=== PATIENT | male | born 1955 | race Caucasian/White ===

== ENCOUNTER 2016-07-08 19:20 | Inpatient (IN) | payer BC ==
[~2016-07-08] VITALS: Ht 182.9 cm; Wt 68.0 kg
--- NOTE | ~2016-07-08 | EKG ---
[address] [place] [employer] [place] [address] ELECTROCARDIOGRAM REPORT Name: BRIANA MYERS Room #: 449-I ADM IN M.R.#: [id number] Admission: 07/08/16 Attend Phys: Margarito Lion MD Discharge: Date of : 51 Report #: [id number] THIS REPORT FOR: //name// [facility] ED Test Date: 2016-07-08 Test Time: 19:41:08 Pat Name: BRIANA MYERS Department: Room: [facility] Gender: M Welt Beater: GUANACO : 1955 Requested By: Keyona Grider Order Number: [id number] MD: Felix Tatum Measurements Intervals [place] Rate: 107 P: 86 KS: 157 QRS: 90 QRSD: 88 T: 37 QT: 333 QTc: 445 Interpretive Statements Sinus tachycardia Borderline right axis deviation Baseline wander in lead(s) V5 No previous ECG available for comparison Electronically Signed On 07-09-2016 8:27:38 PIPING SUPERVISOR by Felix Tatmu [email or web address] <ELECTRONICALLY SIGNED> By: Felix Tatum MD 07/09/16826 40 40 Felix Tatum MD /YFN
--- NOTE | ~2016-07-08 | H ---
[facility] [place] [address] HISTORY AND PHYSICAL Name: BRIANA MYERS Room #: 449-I [facility] IN M.R.#: [id number] Admission: 07/08/16 Attend Phys: Margarito Lion MD Discharge: 07/15/16 Date of : 51 Report #: [id number] THIS REPORT FOR: //name// CC: Margarito Redmond MD ATTENDING PHYSICIAN: Margarito Lion M.D. PRIMARY CARE PHYSICIAN: Gayle Redmond M.D. CHIEF COMPLAINT: Abdominal pain, nausea, vomiting, diarrhea. HISTORY OF PRESENT ILLNESS: The patient is a 61-year-old male, who said he has been having about 4 days of mid abdominal pain. It has been sharp in nature and it has been coming in waves. About 2 days ago, started having nausea and vomiting. He really has not been successful keeping anything down. He thought he was constipated, therefore he tried some MiraLax and then had started having liquids stools. He has been having about 4-5 liquids stools a day for the last 2 days. He denies having any fevers, but has been having some chills, denies any recent antibiotic use. Denies any blood in his emesis or stools. He denies any prior abdominal surgeries. He was found to have a distal small bowel obstruction in the ER and he ____ for further supportive care. He already says that his abdominal pain has improved. He has not had any further vomiting since arrival and he is passing flatus. PAST MEDICAL HISTORY: Bronchiectasis, multiple sclerosis, hypertension, diabetes. PAST SURGICAL HISTORY: Sinus surgery, right arm fracture and repair. ALLERGIES: REYES INHIBITOR causes a cough, COMPAZINE causes dystonia reaction. HOME MEDICATIONS: Benadryl p.r.n, ProAir p.r.n., Norvasc 10 mg daily, naproxen 220 mg daily, clorazepate 3.75 mg b.i.d. for anxiety, QVAR 1 puff daily, Mucinex 600 mg b.i.d., Flonase 2 sprays daily, ipratropium 2 sprays q. 8 hours p.r.n., Protonix 40 mg daily, prednisone 5 mg daily, Levemir insulin 14 units at bedtime and Humalog insulin with meals and multivitamin daily. SOCIAL HISTORY: The patient is wheelchair dependent and has not ambulated in 30 years due to his MS. He lives alone. 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 He denies any tobacco, alcohol or drug use. FAMILY HISTORY: Negative for MS. REVIEW OF SYSTEMS: Twelve point review of systems was reviewed with the patient, otherwise negative unless stated in the HPI. [address] [address] HISTORY AND PHYSICAL Name: BRIANA MYERS Room #: 449-I DIS IN M.R.#: [id number] Admission: 07/08/16 Attend Phys: Margarito Lion MD Discharge: 07/15/16 Date of : 51 Report #: [id number] PHYSICAL EXAMINATION: GENERAL: The patient is an alert male in no acute distress. VITAL SIGNS: Temperature is 36.9, heart rate 122 initially, it is now 74, respirations 18, blood pressure 129/83, oxygen 95% on room air. HEENT: PERRLA. Sclerae is nonicteric. Oral mucosa is pink and dry. NECK: Supple, no JVD noted. CARDIOVASCULAR: Normal S1, S2. No murmurs, rubs or gallops. RESPIRATORY: Breath sounds are clear bilaterally. No wheezing or rhonchi. He is diminished in the bases. Breathing is nonlabored. ABDOMEN: Soft with some very mild tenderness to palpation in the epigastric area. Bowel sounds are active. VASCULAR: 1+ bilateral ankle edema. Pedal pulses are 2+. MUSCULOSKELETAL: He does have some muscle atrophy in bilateral lower extremities. NEUROLOGIC: The patient is alert and oriented x 3. Speech does have dysarthria, which is chronic and somewhat difficult to understand. He does have some generalized weakness with some rigidity to the bilateral upper extremities. LABORATORY AND DIAGNOSTICS: WBC of 5.1, hemoglobin 15.3 and platelets 413. Sodium 143, potassium 3.8, BUN ____, creatinine 1.4. Glucose 87. LFTs are within normal limits. Troponins negative. Lipase is 78. UA showed 1+ glucose, negative leukocyte esterase. EKG shows sinus tachycardia. CT of the abdomen showed findings consistent with a distal small bowel obstruction. The transition zone was not well delineated. ASSESSMENT AND PLAN: 1. Distal small bowel obstruction. This may be due to underlying gastroenteritis. He did not require an NG tube in the ER and his pain has now improved and he is s now passing flatus and having bowel sounds with likely resolving. We will follow up with the KUB this morning. If that improves, we will start him on some clear liquids and advanced diet as tolerated. For now, continue with just ice chips, IV fluids and antiemetics. 2. Gastroenteritis, likely viral. We will continue with supportive care with antiemetics and check stool studies. 3. Acute kidney injury. He is mildly dehydrated due to nausea, vomiting, and diarrhea. Continue with IV fluids and follow labs. 4. Diabetes. He is insulin-dependent. He is quite concerned that his blood sugars will get crazy if he is not kept on his home insulin regimen. I did explain that that we do need to hold some of his insulin from home because he is n.p.o. We will be checking sugars q. 6 hours while n.p.o. and covering with sliding scale insulin. We will resume home insulin regimen when he is taking p.o. [facility] [address] [place] [address] HISTORY AND PHYSICAL Name: BRIANA MYERS Room #: 449-I DIS IN .R.#: [id number] Admission: 07/08/16 Attend Phys: Margarito Lion MD Discharge: 07/15/16 Date of : 51 Report #: [id number] 5. Multiple sclerosis. The patient is at baseline. 6. History of hypertension. Home meds will be held due to n.p.o. status. Resume when able to take p.o., for now, his blood pressures are controlled. 7. History of bronchiectasis. He is adamant that he still needs to take his guaifenesin, despite being n.p.o. We will continue that. Continue with p.r.n. breathing treatments. No signs of exacerbation at this time, he is on prednisone 5 mg daily for it, which we will continue as well. 8. Deep vein thrombosis prophylaxis, place sequential compression devices. We will continue to follow the patient closely throughout the hospitalization and make changes based on clinical status. <ELECTRONICALLY SIGNED> By: LATANYA Limon 07/22/16 0714 0543 [id number] LATANYA Limon /pipe
--- NOTE | ~2016-07-08 | D ---
[facility] [address] DISCHARGE SUMMARY Name: BRIANA MYERS Room #: 449-I [facility] IN M.R.#: [id number] Admission: 07/08/16 Attend Phys: Margarito Lion MD Discharge: 07/15/16 Date of : 51 Report #: [id number] THIS REPORT FOR: //name// CC: Margarito Redmond DATE OF SERVICE: 07/15/2016 DISCHARGE DIAGNOSES: 1. Distal small-bowel obstruction likely secondary to acute gastroenteritis, now resolved. 2. Acute gastroenteritis. 3. Acute kidney injury secondary to above. 4. Type 2 diabetes. 5. Multiple sclerosis. 6. Hypertension. 7. History of bronchiectasis on chronic steroids. CONSULTS: Surgery, Dr. Carnes. PROCEDURES: None. HOSPITAL COURSE: The patient is a 61-year-old male with a history of multiple sclerosis as well as history of bronchiectasis on steroids, diabetes, presented to the ER secondary to abdominal pain, nausea, vomiting and diarrhea. Please see details of the admission dictated by Cristela Garduno on July 15. Symptoms are very congestive, enterocolitis or acute gastroenteritis. However, workup in the ER revealed a distal small-bowel obstruction. The patient was admitted and surgery was consulted. He was placed on bowel rest, antiemetics, pain control and IV fluids. His creatinine when he first came in was 1.4, on discharge it was 0.8. For details of the hospital course, please see [employer] as he was here for prolonged stay. The patient also had a CT enterography done on July 13 that showed distal small-bowel obstruction and enterocolitis. The patient eventually had an NG tube placed to suction and had large amounts of NG tube output. Other studies included negative UA. He was very slow to recover though on the was doing much better and able to tolerate a diet and was very anxious to go home. At that time, he was cleared for discharge by surgery. Of note during the hospital course, he was very displeased with the way some of his medical issues were managed. He felt that his sugars were not properly controlled and he felt that nursing staff was not proficient in caring for him. He felt that he could not manage his medical issues best and wanted to be discharged home as quickly as possible. On the day of discharge, he had no further nausea, vomiting or abdominal pain. He was tolerating his diet bowel movement. He denied any other complaints. Nurses report no other problems. [address] [address] DISCHARGE SUMMARY Name: BRIANA MYERS Room #: 449-I [facility]#: [id number] Admission: 07/08/16 Attend Phys: Margarito Lion MD Discharge: 07/15/16 Date of : 51 Report #: [id number] DISCHARGE DISPOSITION: To home. DISCHARGE PHYSICAL EXAMINATION: VITAL SIGNS: Temperature 36.8, pulse 105, blood pressure 146/70, O2 sat 100% on room air. GENERAL: He is awake, alert, answering questions appropriately, in no acute respiratory distress. CARDIOVASCULAR: Regular rate and rhythm. No murmurs. LUNGS: Clear to auscultation bilaterally. No crackles or wheeze. ABDOMEN: Soft, no distention or tenderness. EXTREMITIES: No edema. NEUROLOGIC: Nonfocal. DISCHARGE MEDICATIONS: Clorazepate 3.75 mg b.i.d., Norvasc 10 mg daily, Flonase 2 sprays p.r.n., Atrovent p.r.n., Protonix 40 daily, Benadryl 25 p.r.n., guaifenesin p.r.n., QVAR 1 inhalation p.r.n., multivitamin daily, ProAir p.r.n., prednisone 5 mg daily, Levemir 15 units at bedtime. CBC and CMP in 1 week. Follow up with primary care in 1 week and to seek immediate medical attention if symptoms worsen or recur or if he has any other significant medical concerns. Discharge planning took 40 minutes. <ELECTRONICALLY SIGNED> By: Melissa Cobb MD 09/06/16 1053 1639 16 Melissa Cobb MD /nt
--- NOTE | ~2016-07-08 | HC ---
[facility] [place] [address] CONSULTATION Name: BRIANA MYERS Room #: 449-I ADM IN M.R.#: [id number] Admission: 07/08/16 Attend Phys: Margarito Lion MD Discharge: Date of : 51 Report #: [id number] THIS REPORT FOR: //name// CC: Margarito Redmond MD DATE OF SERVICE: 07/11/2016 ATTENDING PHYSICIAN: Margarito Lion MD. REASON FOR CONSULTATION: Bowel obstruction. HISTORY OF PRESENT ILLNESS: This is a 61-year-old male patient, who was admitted to [facility] on 07/08/2016 with a several day history of abdominal pain and loose stools. Despite the passage of smaller stools recently, since his hospitalization, he has had continued radiographic evidence for a small-bowel obstruction. His most recent abdominal x-ray today shows dilated loops of small bowel, measuring up to 6.3 cm in diameter. There has not been evidence for free air on any of his studies. His initial CT on 07/08/2016 showed fluid filled distention of the stomach with an air-fluid level, as well as multiple dilated loops of small bowel with air-fluid levels with a transition in the distal small bowel. A definite transition zone was not well delineated. The patient denies significant abdominal pain at this time. PAST MEDICAL HISTORY: Significant for multiple sclerosis, hypertension, diabetes mellitus, and history of bronchiectasis. PAST SURGICAL HISTORY: The patient has not undergone abdominal surgery in the past; however, he has undergone sinus surgery and open reduction internal fixation of a right arm fracture. HOME MEDICATIONS: Include Norvasc, naproxen, clorazepate, Mucinex, Flonase, ipratropium, Protonix, prednisone, insulin, and p.r.n. medications. ALLERGIES: REYES INHIBITOR causes coughing. COMPAZINE causes dystonia. FAMILY HISTORY: Reviewed and noncontributory to this hospitalization. 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 He denies the use of tobacco, alcohol, or illicit drugs. REVIEW OF SYSTEMS: As per history of present illness. In addition, GENERAL: The patient denies unintentional weight loss. Denies fever or chills. HEENT: Denies changes in taste, vision, hearing, or smell. RESPIRATORY: Denies shortness of breath, COPD, or asthma. CARDIOVASCULAR: Denies chest pain or palpitations. [address] [address] CONSULTATION Name: BRIANA MYERS Room #: 449-I [facility] IN ..#: [id number] Admission: 07/08/16 Attend Phys: Margarito Lion MD Discharge: Date of : 51 Report #: [id number] GASTROINTESTINAL: As per history of present illness. Denies bright red blood per rectum. GENITOURINARY: Denies dysuria, urgency, increased urinary frequency, or hematuria. MUSCULOSKELETAL: Wheelchair dependent, has a history of multiple sclerosis. NEUROLOGIC: Denies headaches, numbness, or tingling. PSYCHIATRIC: Denies depression, anxiety, or suicidal ideations. SKIN AND INTEGUMENTARY: Denies new skin lesions, rashes, or moles. ENDOCRINE: Denies polydipsia, polyuria, heat or cold intolerance. HEMATOLOGIC: Denies easy bleeding, bruising, or anemia. All other review of systems is negative. PHYSICAL EXAMINATION: VITAL SIGNS: Temperature 98.4, blood pressure 147/51, pulse 81, respirations 16. GENERAL: This is a 61-year-old male patient with multiple sclerosis changes. He has a dysarthric speech. HEENT: Atraumatic and normocephalic. With moist mucosal membranes. Oropharynx is clear. He has no scleral icterus. NECK: Supple. No appreciable lymphadenopathy. CHEST: Clear bilaterally. No crackles or wheezes. CARDIOVASCULAR: Regular rate and rhythm. S1 and S2. ABDOMEN: Soft, but distended and tender to palpation. He has fat necrosis nodules on either side of his umbilicus inferiorly on either side of his umbilicus. Each nodule is approximately 1-2 cm in diameter. He has no overlying erythema or edema. No appreciable hernias. No rebound or guarding. GENITOURINARY: Normal external male genitalia. EXTREMITIES: No clubbing or cyanosis. NEUROLOGICAL: Cranial nerves 2-12 are grossly intact. PSYCHIATRIC: Normal affect. SKIN/INTEGUMENTARY: No acute inflammatory changes, rashes, or lesions are present. LABORATORY DATA: CBC from this morning shows white blood cell count of 3.6, hemoglobin of 15.2, hematocrit of 44.4, and platelets of 330. His electrolytes showed sodium of 141, potassium of 3.4, chloride of 106, CO2 28, BUN 19, creatinine 0.8, and glucose 38. His glucose has normalized since with appropriate measures, stool for enteric pathogens is negative. The patient's lactate is normal at 0.89. RADIOLOGIC STUDIES: KUB findings are as noted above. Successive KUBs after his initial CT scan have shown slightly increased small bowel diameter. IMPRESSION AND PLAN: This is a 61-year-old male patient with the above listed comorbidities, who now has a possible partial small-bowel obstruction. After his admission on 07/08/2016, he has been treated conservatively with bowel rest [address] [address] CONSULTATION Name: BRIANA MYERS Room #: 449-I ADM IN ..#: [id number] Admission: 07/08/16 Attend Phys: Margarito Lion MD Discharge: Date of : 51 Report #: [id number] and IV fluids; however, a nasogastric tube has not been placed, likely because he has been passing small bowel movements. Despite his bowel activity (which has been minimal), his x-rays have shown an increase in the diameter of his small bowel with an ongoing small-bowel obstruction picture. The patient does not have a history of prior abdominal operations. The patient's lactate is normal. I discussed the natural history and pathophysiology of small bowel obstructions particularly in light of his not having had an operation in the past. Despite this, the patient would benefit from placement of a nasogastric tube for decompression. Should this not resolve with additional conservative measures, the patient may benefit from operative intervention. I will follow along with serial abdominal exams, as well as x-rays and labs as necessary. Should his obstruction resolve with conservative measures, since he has not undergone surgery in the past, he would benefit from further evaluation with either a small bowel follow through or CT enterography. The patient understands the plan and agrees with placement of the nasogastric tube. This will be undertaken promptly. I sincerely appreciate the opportunity to participate in the care of this patient, and will leave further recommendations and orders in the electronic medical record as appropriate. <ELECTRONICALLY SIGNED> By: Edgar Carnes MD, FACS 07/12/16 0845 1323 1521 Edgar Carnes MD, FACS /nt
[~2016-07-08 19:20] MED LIST: ACCUNEB SO1.25 MG/1; ALEVE220 MG; ATROVENT30 ML NASAL; ATROVENT30 ML NS; BENADRYL25 MG PO; CENTRUM SILVER1 EAC4 PO; CHEST CONGESTI400 MG PO; CLORAZEPATE DI7.5 M1 PO; COMBIVENT INH; DOXYCYCLINE 10100 M1 PO; FLONASE16 GM NASAL; FLOVENT HFA 1110 MCG INH; HUMULIN N100 UNIT/1 SUBQ; HUMULINR100 SUBQ; HUMULINU500 SUBQ; LEVAQUIN 500 M500 M1 PO; LEVAQUIN 500 M500 M2 PO; MEDROLDOSEPACK PO; MUCINEX600 MG PO; MUCUS RELIEF600 MG PO; NEXIUM40 MG PO; NORVASC 5 MG TAB5 MG PO; NORVASC10 MG; NOVOLIN N100 UNIT/3 SUBQ; PREDNISONE 10 M10 MG PO; PREDNISONE 20 M20 M1 PO; PREDNISONE 20 M20 MG PO; PROAIR HFA8.5 GM; PROTONIX40 M1 PO; QVAR8.7 G1 IH; TESSALON PERLE100 MG PO; TESSALON200 MG PO; TRANSENE; ZPAK PO; [UNRECOGNIZED DRUG - OTHER]
[2016-07-08 19:24] VITALS: BP 129/83; BP 129/839
[2016-07-08] MEDS ORDERED: TRANXENE T-TAB7.5 MG PO (19:51)
[2016-07-08 19:53] LABS: HEMOGLOBIN 15.3 gm/dL (14.0-18.0); MCH 32.4 pg (26.0-34.0); MCHC 34.8 % (28.0-37.0); MCV 93.3 fL (80.0-100.0); PLATELET COUNT 413 thou/uL (150-400); RBC 4.71 mil/uL (4.50-6.00); RDW 13.9 % (10.5-14.5); WBC 5.1 thou/uL (4.0-11.0)
[2016-07-08 19:56] LABS: MANUAL DIFF YES
[2016-07-08 20:00] LABS: ANION GAP 6 mmol/L (7-16); BUN 50 mg/dL (7-18); CALCIUM 9.6 mg/dL (8.5-10.1); CHLORIDE 98 mmol/L (98-107); CO2 39 mmol/L (21-32); CREATININE 1.4 mg/dL (0.6-1.3); GLUCOSE 87 mg/dL (70-99); POTASSIUM 3.8 mmol/L (3.5-5.1); SODIUM 143 mmol/L (136-145)
[2016-07-08 20:09] LABS: ALBUMIN 3.3 g/dL (3.4-5.0); ALKALINE PHOSPHATASE 109 U/L (46-116); SGOT 14 U/L (15-37); TOTAL BILIRUBIN 0.7 mg/dL (<0.1-1.0); TOTAL PROTEIN 7.3 g/dL (6.4-8.2); TROPONIN-I < 0.04 ng/mL (<0.04-0.07)
[2016-07-08 20:26] LABS: ABSOLUTE NEUTROPHILS 3.8 thou/uL (1.4-8.2); TOTAL CELL COUNT 100
[2016-07-08 21:00] LABS: URINE BILIRUBIN NEGATIVE (Negative); URINE BLOOD NEGATIVE (Negative); URINE COLOR YELLOW; URINE GLUCOSE-RANDOM* 1+ (Negative); URINE KETONES TRACE (Negative); URINE LEUKOCYTES-REFLEX NEGATIVE (Negative); URINE PROTEIN (DIPSTICK) TRACE (Negative); URINE UROBILINOGEN 0.2 E.U./dl (0.2-1.0)
[2016-07-08 22:14] VITALS: BP 124/79
[2016-07-08 22:25] VITALS: BP 146/58
[2016-07-08 23:09] LABS: SGPT 36 U/L (30-65)
[2016-07-09 05:08] VITALS: BP 123/58
[2016-07-09 06:56] LABS: CALCIUM 8.4 mg/dL (8.5-10.1); CREATININE 1.2 mg/dL (0.6-1.3); POTASSIUM 4.1 mmol/L (3.5-5.1)
[2016-07-09 07:06] VITALS: BP 113/58
[2016-07-09 11:33] VITALS: BP 127/67
[2016-07-09 16:56] VITALS: BP 126/66
[2016-07-09] MEDS ORDERED: LEVEMIR100 UNIT/1 SUBQ (17:29)
[2016-07-09] MEDS ORDERED: LEVEMIR SUBQ (17:33)
[2016-07-09 19:27] VITALS: BP 146/55
[2016-07-10 03:07] VITALS: BP 137/61
[2016-07-10 04:39] LABS: HEMATOCRIT 38.5 % (42.0-52.0); MCH 32.2 pg (26.0-34.0); MCHC 33.4 % (28.0-37.0); MCV 96.4 fL (80.0-100.0); RDW 13.4 % (10.5-14.5); WBC 4.7 thou/uL (4.0-11.0)
[2016-07-10 04:41] LABS: CALCIUM 8.1 mg/dL (8.5-10.1)
[2016-07-10 04:54] LABS: HEMOGLOBIN 12.9 gm/dL (14.0-18.0)
[2016-07-10 08:00] VITALS: BP 130/60
[2016-07-10 15:44] VITALS: BP 137/74
[2016-07-10 19:00] VITALS: BP 149/63
[2016-07-11 03:03] VITALS: BP 147/51
[2016-07-11 05:46] LABS: HEMATOCRIT 44.4 % (42.0-52.0); MCH 32.2 pg (26.0-34.0); MCHC 34.2 % (28.0-37.0); MCV 94.3 fL (80.0-100.0); RBC 4.71 mil/uL (4.50-6.00); RDW 13.7 % (10.5-14.5); WBC 3.6 thou/uL (4.0-11.0)
[2016-07-11 05:51] LABS: CALCIUM 8.1 mg/dL (8.5-10.1); CREATININE 0.8 mg/dL (0.6-1.3); MAGNESIUM 1.9 mg/dL (1.8-2.4); POTASSIUM 3.4 mmol/L (3.5-5.1)
[2016-07-11 06:16] LABS: HEMOGLOBIN 15.2 gm/dL (14.0-18.0)
[2016-07-11 07:55] VITALS: BP 139/72
[2016-07-11 12:15] VITALS: BP 140/78
[2016-07-11 12:41] LABS: ABG SAMPLE TYPE ARTERIAL; BE(vivo) 1.1 mmol/L (-2 to +3); HCO3 24.6 mmol/L (22.0-26.0); LACTATE 0.89 mmol/L (0.5-2.0); O2Hb 92.6 % (92.0-98.0); PCO2 35.4 mmHg (35.0-45.0); PO2 68.3 mmHg (80.0-100.0); STICK SITE R.BRACHIAL; pH 7.459 (7.360-7.450); sO2 94.6 % (92.0-98.0); tCO2 25.6 mmol/L (24.0-30.0)
[2016-07-11 16:00] VITALS: BP 136/68
[2016-07-11 20:00] VITALS: BP 131/62
[2016-07-12 00:36] VITALS: BP 126/49
[2016-07-12 04:00] VITALS: BP 118/53
[2016-07-12 07:25] VITALS: BP 137/53
[2016-07-12 12:00] VITALS: BP 142/59
[2016-07-12 15:45] VITALS: BP 112/48
[2016-07-12 19:13] VITALS: BP 126/63
[2016-07-13 02:25] VITALS: BP 139/73
[2016-07-13 06:17] LABS: ABSOLUTE NEUTROPHILS 10.9 thou/uL (1.4-8.2); EOSINOPHILS 0.1 % (0.0-3.0); HEMATOCRIT 38.3 % (42.0-52.0); LYMPHOCYTES 5.9 % (24.0-44.0); MCHC 34.2 % (28.0-37.0); MCV 93.5 fL (80.0-100.0); MONOCYTES 6.2 % (1.0-8.0); PLATELET COUNT 338 thou/uL (150-400); POLYS 87.8 % (36.0-66.0); RBC 4.09 mil/uL (4.50-6.00); RDW 13.8 % (10.5-14.5); WBC 12.4 thou/uL (4.0-11.0)
[2016-07-13 06:23] LABS: HEMOGLOBIN 13.1 gm/dL (14.0-18.0)
[2016-07-13 06:24] LABS: MANUAL DIFF NO
[2016-07-13 06:43] LABS: CREATININE 1.1 mg/dL (0.6-1.3); POTASSIUM 3.9 mmol/L (3.5-5.1)
[2016-07-13 08:30] VITALS: BP 149/61
[2016-07-13 16:00] VITALS: BP 130/66
[2016-07-13 19:21] VITALS: BP 143/60
[2016-07-14 03:57] VITALS: BP 140/72
[2016-07-14 07:30] VITALS: BP 144/68
[2016-07-14 11:20] VITALS: BP 140/75
[2016-07-14 12:57] LABS: HEMATOCRIT 40.7 % (42.0-52.0); HEMOGLOBIN 13.6 gm/dL (14.0-18.0); MCH 31.3 pg (26.0-34.0); MCHC 33.3 % (28.0-37.0); PLATELET COUNT 341 thou/uL (150-400); RBC 4.33 mil/uL (4.50-6.00); RDW 13.9 % (10.5-14.5); WBC 12.4 thou/uL (4.0-11.0)
[2016-07-14 12:58] LABS: MANUAL DIFF YES
[2016-07-14 13:15] LABS: ABSOLUTE NEUTROPHILS 11.8 thou/uL (1.4-8.2); PLATELET ESTIMATE NORMAL; TOTAL CELL COUNT 100
[2016-07-14 15:33] VITALS: BP 133/82
[2016-07-14 19:42] VITALS: BP 154/89
[2016-07-15 04:35] VITALS: BP 125/61
[2016-07-15 07:08] VITALS: BP 134/63
[2016-07-15 08:13] LABS: HEMATOCRIT 39.6 % (42.0-52.0); HEMOGLOBIN 13.3 gm/dL (14.0-18.0); MCH 31.6 pg (26.0-34.0); MCHC 33.6 % (28.0-37.0); PLATELET COUNT 313 thou/uL (150-400); RBC 4.21 mil/uL (4.50-6.00); RDW 13.7 % (10.5-14.5); WBC 13.6 thou/uL (4.0-11.0)
[2016-07-15 08:15] LABS: MANUAL DIFF YES
[2016-07-15 08:23] LABS: CALCIUM 7.8 mg/dL (8.5-10.1); CREATININE 0.8 mg/dL (0.6-1.3); POTASSIUM 3.3 mmol/L (3.5-5.1)
[2016-07-15 08:42] LABS: ABSOLUTE NEUTROPHILS 12.1 thou/uL (1.4-8.2); TOTAL CELL COUNT 100
[2016-07-15 11:10] VITALS: BP 134/62
[2016-07-15 17:14] VITALS: BP 146/70
[2016-07-15 19:07] VITALS: BP 146/70
== END 2016-07-15 19:00 | disposition home or self-care (01) | DRG 389 ==
LOC: ER 19:20 → EROBS 21:37 → 4W 21:37
PROVIDERS: Emergency Medicine; Family Medicine; Hospitalist; Nurse Practitioner Acute Care; Nurse Practitioner Family; Surgery
DX: K56.60 Unspecified intestinal obstruction (principal); N17.9 Acute kidney failure, unspecified; E86.0 Dehydration; E10.9 Type 1 diabetes mellitus without complications; I10 Essential (primary) hypertension; G35 Multiple sclerosis; D64.9 Anemia, unspecified
CPT/HCPCS: 10040

== ENCOUNTER → 2017-06-30 | Outpatient (CLI) | payer BC ==
[~2017-06-30] MED LIST changes: +ACETAMINOPHEN325 M1 PO; +ACIDOPHILUS1 EAC4 PO; +ALDACTONE25 MG PO; +ASPIR 8181 MG PO; +ATORVASTATIN CA40 MG PO; +ATROVENT INH; +AUGMENTIN 875-1 EACH PO; +CAPZASIN HP TOP; +CARDIOTAB PO; +CARVEDILOL12.5 MG PO; +CARVEDILOL3.125 MG PO; +CEFUROXIME500 MG PO; +CO Q-10100 MG PO; +CORLANOR5 MG PO; +COUMADIN 2 MG TA2 M1 PO; +COUMADIN 3 MG TA3 M1 PO; +COZAAR 25 MG TA25 M1 PO; +CURCUMIN PO; +DEMADEX 2020 MG/1 TA PO; +DEMADEX20 MG PO; +DUONEB 2.5-0.5 M3 ML INH; +ENOXAPARIN80 MG/0.1 SUBQ; +HUMALOG KW100 UNIT/1 SUBQ; +IPRAT-ALBUT 0.5-3 ML INH; +KLOR-CON M2020 MEQ PO; +LANTUS100 UNIT/M SUBQ; +LEVEMIR SUBQ; +LEVEMIR100 UNIT/1 SUBQ; +LIPITOR 20 MG T20 M1 PO; +LOSARTAN POTASS25 MG PO; +MIRALAX17 GM PO; +NOVOLOG100 UNIT/1; +NOVOLOG100 UNIT/1 SUBQ; +PREDNISONE 10 M10 M1 PO; -PROAIR HFA8.5 GM; +PROAIR HFA8.5 GM INH; +PROAIR RESPICL90 MCG INH; +SOLU-MEDRO40 MG/1 M2 IV PUSH; +TRAMADOL 50 MG50 MG PO; +TRANXENE T-TAB7.5 MG PO; +ZANTAC 150MG T150 MG PO
== END ==
LOC: RAD 09:59
DX: J47.9 Bronchiectasis, uncomplicated (principal)

== ENCOUNTER 2017-08-21 05:22 | Inpatient (IN) | payer BC ==
[2017-08-20 20:00] VITALS: BP 101/54
[2017-08-21] VITALS (18 sets, daily range): BP systolic 89–116; BP diastolic 48–81
[~2017-08-21] VITALS: Ht 182.9 cm; Wt 73.9 kg
--- NOTE | ~2017-08-21 | HC ---
[facility] [place] [address] CONSULTATION Name: BRIANA MYERS Room #: 250-P ADM IN M.R.#: [id number] Admission: 08/21/17 Attend Phys: Javi Jackman DO Discharge: Date of : 51 Report #: [id number] THIS REPORT FOR: //name// CC: Javi Redmond MD PULMONARY CONSULTATION PRIMARY CARE PHYSICIAN: Gayle Redmond MD REFERRING PHYSICIAN: Bobo Turner MD REASON FOR REFERRAL: Acute respiratory distress. HISTORY OF PRESENT ILLNESS: The patient is a 62-year-old white male who presented to Emergency Room with dyspepsia. He was seen by Cardiology. He was felt to have cardiac symptoms. Following cardiac catheterization, the patient developed worsening dyspnea. A Pulmonary consultation was requested. CT chest angiogram was ordered by Dr. Turner. This revealed no evidence of pulmonary embolus, but diffuse bilateral patchy infiltrates. He was then placed on BiPAP. He was given diuretics. The patient was hypotensive throughout the night. This morning he feels better. He is off the BiPAP. He denies any chest pain, nausea, vomiting, diarrhea. PAST MEDICAL HISTORY: Notable for multiple sclerosis diagnosed around 1985, diabetes mellitus type 1, hypertension, questionable history of asthma on inhaled steroids and bronchodilators. ALLERGIES: REYES INHIBITORS, REACTIONS UNSPECIFIED, COMPAZINE, REACTIONS UNSPECIFIED. MEDICATIONS: His reported home medications include clorazepate, Atrovent nasal spray, Norvasc, Benadryl, QVAR, Centrum, ProAir, Levemir, Zantac, prednisone 5 mg once a day. FAMILY HISTORY: Noncontributory. SOCIAL HISTORY: The patient denies any tobacco use. Denies any alcohol use. REVIEW OF SYSTEMS: As mentioned above, otherwise it is notable for progressive weakness, dysarthria. A 10-point system review otherwise unremarkable. [facility] [address] [address] CONSULTATION Name: BRIANA MYERS Room #: [address] [place] [address] [place] [facility]#: [id number] Admission: 08/21/17 Attend Phys: Javi Jackman DO Discharge: Date of : 51 Report #: [id number] PHYSICAL EXAMINATION: GENERAL: He is awake, alert, in mild respiratory distress. VITAL SIGNS: Temperature is 98 degrees Fahrenheit, pulse is 100, respiratory rate is 20, blood pressure is 97/65 mmHg, saturation 100%. HEENT: Normocephalic, atraumatic. NECK: Supple, without any lymphadenopathy or thyromegaly. CHEST: Breath sounds are fair with few scattered crackles in the bases. No wheezes. CARDIOVASCULAR: Normal S1, S2. No murmurs, rubs or gallops. There is no JVD. There is no carotid bruit. Pulses are 2+/4+ bilaterally. ABDOMEN: Soft, nontender, no organomegaly or masses felt. GENITOURINARY: Deferred. RECTAL: Deferred. EXTREMITIES: There is no edema, cyanosis or clubbing. LABORATORY DATA: CT chest angiogram as above showing no evidence of pulmonary embolus, bilateral patchy infiltrates. Echocardiogram showed ejection fraction of about 20%-25%, left ventricular systolic function is severely decreased, apical thrombus is present. Pulmonary artery pressure measured at 50. Admitting troponin was 14.1, repeat is 22.9. Sodium 135, potassium 5.5, chloride 99, CO2 of 27, BUN is 44, creatinine is 1.6, glucose is 305. WBC 15,000; hemoglobin 13.5; platelets are normal. No evidence of bandemia. Arterial blood gas revealed pH 7.48, pCO2 of 31, pO2 of 53 on 14 liters of O2. IMPRESSION: 1. Acute hypoxic respiratory failure in this 62-year-old white male, etiology due to cardiogenic pulmonary edema. Pneumonia is felt to be less likely as his admitting chest x-ray was unremarkable. CT chest angiogram as mentioned above. 2. Coronary artery disease, severe ischemic cardiomyopathy, with apical thrombus. The patient will likely need anticoagulation, deferred to Cardiology. 3. Acute kidney injury with a creatinine of 1.6, probably related to acute tubular necrosis due to hypotension. 4. Hypotension due to cardiogenic shock, improved. 5. Elevated troponin, acute coronary syndrome as per Cardiology. 6. Multiple sclerosis. 7. Hypertension. 8. Diabetes mellitus type 1. RECOMMENDATION: Agree with current treatment, gentle diuresis, may need vasopressors for hypotension, follow renal function closely given recent cardiac catheterization and contrast dye. In terms of infiltrates, this is likely heart failure rather than pneumonia. Could hold on antibiotics for now and observe closely. Wean O2 for saturation 90%. Follow up chest x-ray. DVT and GI prophylaxis will [address] [address] CONSULTATION Name: BRIANA MYERS Room #: 250-P ADM IN M.R.#: [id number] Admission: 08/21/17 Attend Phys: Javi Jackman DO Discharge: Date of : 51 Report #: [id number] be addressed. In regards to apical thrombus, we will defer to Cardiology regarding whether the patient needs to be anticoagulated or not. Thank you for this consultation. <ELECTRONICALLY SIGNED> By: Stevenson Morris MD 08/23/17 1152 1318 2203 Stevenson Morris MD /nt
--- NOTE | ~2017-08-21 | 2DMMODE ---
[facility] [address] [place] [address] 2 D/M-MODE ECHOCARDIOGRAM Name: BRIANA MYERSN Room #: 250-P ADM IN M.R.#: [id number] Admission: 08/21/17 Attend Phys: Javi Jackman, Discharge: Date of : 51 Date of Service: 08/22/17 0857 Report #: [id number] THIS REPORT FOR: //name// APPROVED REPORT Study performed: 08/22/2017 08:07:16 EXAM: Comprehensive 2D, Doppler, and color-flow Echocardiogram Patient Location: ICU Room #: 250 Status: routine BSA: 1.94 HR: 90 bpm BP: 80/55 mmHg Rhythm: NSR Other Information Study Quality: Adequate/low parasternal window. Technically limited study due to limited mobility. Patient in ICU on BiPAP. Indications Chest pain, NSTEMI, cardiomyopathy. Hx: DM, HTN, COPD 2D Dimensions RVDd: 36.40 mm LVEF(%): 45.53 (>50%) IVSd: 7.11 (7-11mm) LVOT Diam: 20.51 (18-24mm) LVDd: 49.58 mm PWd: 9.82 (7-11mm) LVDs: 38.31 (25-40mm) Aortic Root: 32.47 mm Hudson's LVEF: 45.53 % Volumes Left Atrial Volume (Systole) Single Plane 4CH: 31.72 mL Single Plane 2CH: 37.03 mL LA ESV Index: 20.00 mL/m2 Aortic Valve AoV Peak Tanvir.: 0.77 m/s AO Peak Gr.: 2.35 mmHg LVOT Max P.39 mmHg LVOT Max V: 0.59 m/s ERIN Vmax: 2.54 cm2 Mitral Valve [facility] [place] [address] 2 D/M-MODE ECHOCARDIOGRAM Name: LUCIABRIANA MARIA GUADALUPE Room #: 250-P [facility] IN M.R.#: [id number] Admission: 08/21/17 Attend Phys: Javi Jackman, Discharge: Date of : 51 Date of Service: 08/22/17 0857 Report #: [id number] E/A Ratio: 1.2 MV Decel. Time: 113.59 ms MV E Max Tanvir.: 0.87 m/s MV A Tanvir.: 0.72 m/s MV PHT: 32.94 ms IVRT: 57.67 ms Pulmonary Valve PV Peak Tanvir.: 1.11 m/s PV Peak Gr.: 4.97 mmHg Tricuspid Valve TR Peak Tanvir.: 3.07 m/s RAP Estimate: 15.00 mmHg TR Peak Gr.: 37.66 mmHg PA Pressure: 53.00 mmHg Left Ventricle The left ventricle is normal size. There is normal left ventricular wall thickness. Left ventricular systolic function is severely decreased. Apical thrombus is present LVEF is 20-25%. Extensive mid to distal anterolateral wall and inferior wall akinesis Right Ventricle The right ventricle is normal size. The right ventricular systolic function is normal. Atria The left atrium size is normal. The right atrium size is normal. Aortic Valve The aortic valve is mildly sclerotic. No aortic regurgitation is present. There is no aortic valvular stenosis. Mitral Valve The mitral valve is normal in structure. Trace mitral regurgitation. Tricuspid Valve The tricuspid valve is normal in structure. Mild to moderate tricuspid regurgitation. Estimated PAP is 50mmHg. Pulmonic Valve The pulmonary valve is normal in structure. There is no pulmonic valvular regurgitation. Great Vessels [facility] [address] [place] [address] 2 D/M-MODE ECHOCARDIOGRAM Name: BRIANA MYERSN Room #: [facility] IN M.R.#: [id number] Admission: 08/21/17 Attend Phys: Javi Jackman, Discharge: Date of : 51 Date of Service: 08/22/17 0857 Report #: [id number] The aortic root is normal in size. Ascending aorta is not well visualized. IVC is dilated and collapses <50% with inspiration. Pericardium Small pericardial effusion noted. Left and right pleural effusions noted. Critical Notification Critical Value: Yes Physician Notified Date: 08/22/2017 <Conclusion> Left ventricular systolic function is severely decreased. Apical thrombus is present LVEF is 20-25%. Extensive mid to distal anterolateral wall and inferior wall akinesis The aortic valve is mildly sclerotic. No aortic valvular stenosis or insufficiency. The mitral valve is normal in structure. Trace mitral regurgitation. Mild to moderate tricuspid regurgitation. Estimated pulmonary artery pressure of 50mmHg. Small pericardial effusion noted. <ELECTRONICALLY SIGNED> By: Lavelle Bernabe MD, [facility] 08/22/1757 6 6 Lavelle Bernabe MD, FACC /INF
--- NOTE | ~2017-08-21 | HC ---
[facility] [place] [address] CONSULTATION Name: BRIANA MYERS Room #: 248-P [facility] IN M.R.#: [id number] Admission: 08/21/17 Attend Phys: Javi Jackman DO Discharge: Date of : 51 Report #: [id number] THIS REPORT FOR: //name// CC: Javi Redmond DATE OF SERVICE: 08/26/2017 HISTORY OF PRESENT ILLNESS: The patient is a 62-year-old white male with a history of multiple sclerosis, premorbidly wheelchair bound, admitted with chest pain increased with activity. He was diagnosed with a non-ST elevation [place]. He underwent cardiac catheterization, which revealed multivessel disease. He has anterolateral and inferior wall akinesis with decreased left ventricular ejection fraction of 20-25%. He is not felt to be a surgical candidate. His course has been complicated by acute respiratory failure with pneumonia. He has hypertension and acute renal insufficiency. He has had a significant functional decline from his premorbid status. We are seeing him in rehabilitation medicine consultation. PAST MEDICAL HISTORY: Multiple sclerosis diagnosed in 1986. He has been wheelchair bound. He has diabetes mellitus type 1 and hypertension. MEDICATIONS: Please see the full medication listing. ALLERGIES: REYES INHIBITORS, PROCHLORPERAZINE. HABITS: No history of tobacco or alcohol abuse. SOCIAL HISTORY: Lives in an apartment. Premorbidly wheelchair bound and could transfer independently and was independent, doing his ADLs. He notes that the wheelchair is not actually accessible, but he has another wheelchair inside the bathroom any transfers from one wheelchair into the other wheelchair through the bathroom door and then utilizes the second wheelchair in the bathroom to transfer onto the actual toilet. He also has grab bars in his bathroom and shower. He has a son in [place]. There is a friend visiting here today from [place]. REVIEW OF SYSTEMS: Did not offer any current complaints of chest pain, shortness of breath, abdominal discomfort. He notes that he does not have the strength and endurance that he once had and understands the need for rehabilitation therapies. No focal extremity pain complaints. He notes he does have double vision, which is chronic and he will typically just use one eye when reading. He will listen to books on tape. PHYSICAL EXAMINATION: GENERAL: He is a pleasant 62-year-old bearded white male seen in the Intensive [address] [address] CONSULTATION Name: BRIANA MYERS Room #: 248-P [facility] IN .R.#: [id number] Admission: 08/21/17 Attend Phys: Javi Jackman DO Discharge: Date of : 51 Report #: [id number] Care Unit. He is currently on FiO2 50 with liters per minute 40. NEUROLOGIC: He is oriented, appears to be somewhat dysarthric. EOMs reveal some disconjugate gaze with the appearance of some upward gaze nystagmus. Facies otherwise appeared symmetric. He has functional range of motion of both upper extremities. Strength is grade 4- to 3+/5. DTRs are 1. There was negative Cerno's. LOWER EXTREMITIES: He can move both of his ankles a grade 3+ proximally, he is probably at 2+ to 3-, there was some clonus of that right greater than left ankle. Bed to chair is max assist. No focal calf swelling. ASSESSMENT: A 62-year-old white male with the following problem list: 1. Non-ST elevation myocardial infarction with extensive anterior lateral and inferior wall akinesis, multivessel coronary artery disease, not a good surgical candidate. 2. Premorbid multiple sclerosis, wheelchair bound. 3. Significant generalized weakness and debilitation. 4. Acute respiratory failure with pneumonia, bilateral infiltrates. 5. Acute renal insufficiency. 6. Hypertension. 7. Diabetes mellitus type 2. PLAN: He is currently on high dose oxygen. We will need to see how he does with tolerance of therapies. He certainly may warrant an acute in-hospital inpatient rehabilitation stay as he further medically stabilizes. He is very motivated. We will be glad to follow along with you regarding his rehab therapy needs as he further medically stabilizes. <ELECTRONICALLY SIGNED> By: Jerrod Goss MD 08/30/17 1510 1238 0332 Jerrod Goss MD /[facility]
--- NOTE | ~2017-08-21 | EKG ---
[address] [place] [address] ELECTROCARDIOGRAM REPORT Name: BRIANA MYERS Room #: 218-P ADM IN M.R.#: [id number] Admission: 08/21/17 Attend Phys: Javi Jackman DO Discharge: Date of : 51 Report #: [id number] THIS REPORT FOR: //name// [facility] ED Test Date: 2017-08-21 Test Time: 05:38:32 Pat Name: BRIANA MYERS Department: Room: 218 Gender: M Cream Buyer: [id number] : 1955 Requested By: Jerrod Hwang Order Number: [id number] MD: Lavelle Bernabe Measurements Intervals [place] Rate: 103 P: 82 [place]: 178 QRS: 99 QRSD: 100 T: -62 QT: 311 QTc: 407 Interpretive Statements Sinus tachycardia Anterior infarct, old Borderline T abnormalities, inferior leads Minimal ST elevation, lateral leads Compared to ECG 07/08/2016 19:41:08 Myocardial infarct finding now present T-wave abnormality now present ST (T wave) deviation now present Electronically Signed On 08-21-2017 15:31:12 SENIOR TECHNICAL MANAGER by Lavelle Bernabe [email or web address] <ELECTRONICALLY SIGNED> By: Lavelle Bernabe MD, [facility] 08/21/17 1531 0538 0538 Lavelle Bernabe MD, [facility] /EPI
--- NOTE | ~2017-08-21 | CATHLAB ---
[facility] [address] [place] [address] INVASIVE PROCEDURE REPORT Name: BRIANA MYERS Room #: 214-P [facility] IN M.R.#: [id number] Admission: 08/21/17 Attend Phys: Javi Jackman, Discharge: Date of : 51 Date of Service: 08/23/171931 Report #: [id number] THIS REPORT FOR: //name// APPROVED REPORT Patient Details Patient Status: In-Patient Room #: The patient is a 62 year-old male Event Personnel Maryam Calderon, Rina Hansen, Reese Lucas RN, Yuni, Jael RN RN, Earnestine Gooden RN RN, Bobo Turner User Experience Manager Procedures Performed Art Access - R femoral artery* Left Heart Cath w/or w/o Coronaries [id number] [facility] Hemostasis w/ Mynx Procedure Narrative The patient was brought urgently to the Cardiac Catheterization Laboratory and was prepped and draped in a sterile manner. The Right Groin^ was infiltrated with 1% Lidocaine subcutaneous anesthesia. A PINNACLE 6FR Sheath #[id number] sheath was inserted into the RFA^. Coronary angiography was performed using coronary diagnostic catheters. The right coronary system was accessed and visualized with a JR 4 catheter. The left coronary system was accessed and visualized with a JL 4 catheter. The left ventricle was accessed and visualized with a Pigtail catheter. Left ventricular/Aortic Valve gradient assessed via catheter pullback. Left ventriculogram was performed in AVILA projection. Pre-demployment femoral angiogram was performed . Closure device was deployed with a 6 Fr Mynx. The patient tolerated the procedure well and there were no complications associated with the procedure. There was no hematoma. Intraoperative Conscious Sedation Sedation start time: 12:24 Case end Time: 12:44 Versed 1 mg Fluoro Time: 2.33 minutes Dose: DAP 2249.60 cGycm2 298.7 mGy Contrast Type and Amount: Omnipaque 60 ml Coronary Angiography The patient's coronary anatomy is right dominant. [facility] [address] [place] [address] INVASIVE PROCEDURE REPORT Name: BRIANA MYERS Room #: 214-P [facility] IN ..#: [id number] Admission: 08/21/17 Attend Phys: Javi Jackman, Discharge: Date of : 51 Date of Service: 08/23/17 193 Report #: [id number] Diagnostic Cath Left Main Moderate caliber vessel which courses and bifurcates in the left into the setting left circumflex. Has luminal irregularities of less than 30% LAD Moderate caliber vessel with mild irregularities until the mid LAD where it tapers rapidly and is subtotally occluded. It then continues as a small less than half a millimeter vessel diffusely diseased with high-grade lesions towards the apex and terminates at the apex. The first diagonal branch is subtotally occluded at the origin of the mid LAD and fills faintly via heterocollateral and homocollaterals. Diagonal 1 Small-caliber diffusely disease vessel in the proximal third and then subtotally occluded with distal filling via homocollaterals Circumflex Small nondominant vessel coursing laterally giving rise to small caliber marginal branches with have diffuse and high-grade lesions Right Coronary Small-caliber vessel which has high grade lesions proximally throughout its entire course and heavily calcified. It is a dominant vessel R PDA Occluded proximally and fills retrograde from left to right is small in caliber less than half a millimeter Left Ventriculography The left ventricle is moderately dilated in size with severely decreased global contractility. The left ventricular ejection fraction is estimated to be 20-25%. Left ventricular wall motion abnormalities are present. Hemodynamics The aortic pressure is 111/64 mmHg with a mean of 86 mmHg. The left ventricular pressure is 98/28 mmHg with a mean of mmHg. The left ventricular end diastolic pressure is 33 mmHg. Conclusion 1. Severe three-vessel coronary artery disease with diffusely affected diminutive vessels and posterior descending artery filling via [id number]-gk-[id number] collaterals 2. Enlarged left ventricular cavity size with severely decreased left ventricular ejection fraction and multiple wall motion abnormalities 3. Abnormal hemodynamics with markedly elevated left ventricular end-diastolic pressure [facility] [address] [place] [address] INVASIVE PROCEDURE REPORT Name: BRIANA MYERS Room #: 214-P [facility] IN M.R.#: [id number] Admission: 08/21/17 Attend Phys: Javi Jackman, Discharge: Date of : 51 Date of Service: 08/23/171931 Report #: [id number] Recommendations Aggressive Medical Therapy <ELECTRONICALLY SIGNED> By: Bobo Turner MD 08/23/171931 31 31 Bobo Turner MD /INF
--- NOTE | ~2017-08-21 | EKG ---
[address] [employer] [address] ELECTROCARDIOGRAM REPORT Name: BRIANA MYERS Room #: 250-P ADM IN M.R.#: [id number] Admission: 08/21/17 Attend Phys: Javi Jackman DO Discharge: Date of : 51 Report #: [id number] THIS REPORT FOR: //name// [facility] ED Test Date: 2017-08-21 Test Time: 06:39:52 Pat Name: BRIANA MYERS Department: Room: 250 Gender: M Bus Greaser: : 1955 Requested By: Jerrod Hwang Order Number: [id number] MD: Lavelle Bernabe Measurements Intervals [place] Rate: 115 P: 28 [place]: 174 QRS: 31 QRSD: 104 T: 209 QT: 328 QTc: 454 Interpretive Statements Sinus tachycardia Anteroseptal infarct, old Nonspecific T abnormalities, lateral leads Lead(s) III missing Compared to ECG 07/08/2016 19:41:08 Lateral Q waves are no longer present Electronically Signed On 08-22-2017 8:00:52 SITE SAFETY REPRESENTATIVE by Lavelle Bernabe [email or web address] <ELECTRONICALLY SIGNED> By: Lavelle Bernabe MD, [facility] 08/22/17 0800 0639 0639 Lavelle Bernabe MD, [facility] /EPI
[~2017-08-21 05:22] MED LIST changes: -ACETAMINOPHEN325 M1 PO; -ACIDOPHILUS1 EAC4 PO; -ALDACTONE25 MG PO; -ASPIR 8181 MG PO; -ATORVASTATIN CA40 MG PO; -ATROVENT INH; -AUGMENTIN 875-1 EACH PO; -CAPZASIN HP TOP; -CARDIOTAB PO; -CARVEDILOL12.5 MG PO; -CARVEDILOL3.125 MG PO; -CEFUROXIME500 MG PO; -CO Q-10100 MG PO; -CORLANOR5 MG PO; -COUMADIN 2 MG TA2 M1 PO; -COUMADIN 3 MG TA3 M1 PO; -COZAAR 25 MG TA25 M1 PO; -CURCUMIN PO; -DEMADEX 2020 MG/1 TA PO; -DEMADEX20 MG PO; -DUONEB 2.5-0.5 M3 ML INH; -ENOXAPARIN80 MG/0.1 SUBQ; -HUMALOG KW100 UNIT/1 SUBQ; -IPRAT-ALBUT 0.5-3 ML INH; -KLOR-CON M2020 MEQ PO; -LANTUS100 UNIT/M SUBQ; -LIPITOR 20 MG T20 M1 PO; -LOSARTAN POTASS25 MG PO; -MIRALAX17 GM PO; -NOVOLOG100 UNIT/1; -NOVOLOG100 UNIT/1 SUBQ; -PREDNISONE 10 M10 M1 PO; -PROAIR RESPICL90 MCG INH; -SOLU-MEDRO40 MG/1 M2 IV PUSH; -TRAMADOL 50 MG50 MG PO; -ZANTAC 150MG T150 MG PO
[2017-08-21 05:44] LABS: HEMATOCRIT 37.3 % (42.0-52.0); HEMOGLOBIN 12.6 gm/dL (14.0-18.0); MCH 31.7 pg (26.0-34.0); MCHC 33.7 g/dL (28.0-37.0); MCV 94.1 fL (80.0-100.0); RBC 3.97 mil/uL (4.50-6.00); WBC 10.8 thou/uL (4.0-11.0)
[2017-08-21 06:02] LABS: CALCIUM 9.3 mg/dL (8.5-10.1); CREATININE 1.4 mg/dL (0.7-1.3); POTASSIUM 4.2 mmol/L (3.5-5.1)
[2017-08-21] MEDS ORDERED: ZANTAC 150MG T150 MG PO (06:30)
[2017-08-21] MEDS ORDERED: NOVOLOG100 UNIT/1 (14:51)
[2017-08-22] VITALS (67 sets, daily range): BP systolic 63–104; BP diastolic 39–69
[2017-08-22 01:53] LABS: BE(vivo) 0.4 mmol/L (-2 to +3); PCO2 31.3 mmHg (35.0-45.0); pH 7.484 (7.360-7.450); sO2 90.4 % (92.0-98.0)
[2017-08-22 01:59] LABS: PO2 53.4 mmHg (80.0-100.0)
[2017-08-22 05:47] LABS: BE(vivo) -0.2 mmol/L (-2 to +3); HCO3 22.9 mmol/L (22.0-26.0); PCO2 32.9 mmHg (35.0-45.0); PO2 102.7 mmHg (80.0-100.0)
[2017-08-22 05:59] LABS: HEMOGLOBIN 13.5 gm/dL (14.0-18.0); MCH 31.6 pg (26.0-34.0); MCHC 33.7 g/dL (28.0-37.0); MCV 93.7 fL (80.0-100.0); PLATELET COUNT 378 thou/uL (150-400); RBC 4.26 mil/uL (4.50-6.00); RDW 15.1 % (10.5-14.5)
[2017-08-22 06:18] LABS: CALCIUM 8.7 mg/dL (8.5-10.1); CREATININE 1.6 mg/dL (0.7-1.3); POTASSIUM 5.5 mmol/L (3.5-5.1)
[2017-08-22 07:12] LABS: ABSOLUTE NEUTROPHILS 14.6 thou/uL (1.4-8.2)
[2017-08-22 14:53] LABS: HEMOGLOBIN 13.1 gm/dL (14.0-18.0); MCH 31.3 pg (26.0-34.0); MCHC 33.5 g/dL (28.0-37.0); MCV 93.3 fL (80.0-100.0); RBC 4.19 mil/uL (4.50-6.00); RDW 14.6 % (10.5-14.5); WBC 15.8 thou/uL (4.0-11.0)
[2017-08-22 15:05] LABS: INR 1.3; PROTIME 13.7 Seconds (9.3-11.4)
[2017-08-23] VITALS (19 sets, daily range): BP systolic 88–104; BP diastolic 59–72
[2017-08-23 05:51] LABS: HEMATOCRIT 35.7 % (42.0-52.0); MCH 31.4 pg (26.0-34.0); MCHC 33.6 g/dL (28.0-37.0); MCV 93.5 fL (80.0-100.0); PLATELET COUNT 370 thou/uL (150-400); RBC 3.82 mil/uL (4.50-6.00)
[2017-08-23 06:07] LABS: CALCIUM 8.2 mg/dL (8.5-10.1); CREATININE 1.6 mg/dL (0.7-1.3); POTASSIUM 5.1 mmol/L (3.5-5.1)
[2017-08-23 07:59] LABS: ABSOLUTE NEUTROPHILS 20.9 thou/uL (1.4-8.2); ANISOCYTOSIS 1+; POLYCHROMASIA OCCASIONAL
[2017-08-23 10:37] LABS: INR 1.3; PROTIME 13.7 Seconds (9.3-11.4)
[2017-08-24 00:15] VITALS: BP 100/70
[2017-08-24 01:40] LABS: HEMATOCRIT 34.7 % (42.0-52.0); HEMOGLOBIN 11.7 gm/dL (14.0-18.0); MCH 31.2 pg (26.0-34.0); MCHC 33.8 g/dL (28.0-37.0); MCV 92.4 fL (80.0-100.0); RBC 3.75 mil/uL (4.50-6.00); WBC 18.7 thou/uL (4.0-11.0)
[2017-08-24 01:46] LABS: INR 1.2; PROTIME 12.6 Seconds (9.3-11.4)
[2017-08-24 01:51] LABS: ALBUMIN 2.2 g/dL (3.4-5.0); CALCIUM 8.2 mg/dL (8.5-10.1); CREATININE 1.5 mg/dL (0.7-1.3); PHOSPHORUS 2.9 mg/dL (2.5-4.9)
[2017-08-24 01:58] LABS: TROPONIN-I 23.76 ng/mL (<0.06)
[2017-08-24 03:49] VITALS: BP 88/56
[2017-08-24 07:43] VITALS: BP 87/60
[2017-08-24 11:14] VITALS: BP 95/62
[2017-08-24 18:33] VITALS: BP 88/59
[2017-08-24 20:20] VITALS: BP 97/67
[2017-08-25] VITALS (24 sets, daily range): BP systolic 80–118; BP diastolic 46–95
[2017-08-25 02:32] LABS: BE(vivo) -0.8 mmol/L (-2 to +3); HCO3 21.7 mmol/L (22.0-26.0); PCO2 29.6 mmHg (35.0-45.0); pH 7.483 (7.360-7.450); sO2 89.2 % (92.0-98.0)
[2017-08-25 03:52] LABS: HEMATOCRIT 34.7 % (42.0-52.0); HEMOGLOBIN 11.7 gm/dL (14.0-18.0); MCH 31.8 pg (26.0-34.0); MCHC 33.8 g/dL (28.0-37.0); MCV 94.2 fL (80.0-100.0); RBC 3.68 mil/uL (4.50-6.00); RDW 15.4 % (10.5-14.5); WBC 15.7 thou/uL (4.0-11.0)
[2017-08-25 04:02] LABS: INR 1.5; PROTIME 14.9 Seconds (9.3-11.4)
[2017-08-25 12:46] LABS: BE(vivo) -0.7 mmol/L (-2 to +3); HCO3 21.8 mmol/L (22.0-26.0); PCO2 29.7 mmHg (35.0-45.0); PO2 59.9 mmHg (80.0-100.0); pH 7.483 (7.360-7.450)
[2017-08-26] VITALS (38 sets, daily range): BP systolic 88–115; BP diastolic 62–77
[2017-08-26 03:00] LABS: HEMATOCRIT 36.9 % (42.0-52.0); HEMOGLOBIN 12.5 gm/dL (14.0-18.0); MCH 31.4 pg (26.0-34.0); MCHC 33.9 g/dL (28.0-37.0); MCV 92.5 fL (80.0-100.0); RBC 3.99 mil/uL (4.50-6.00); WBC 15.9 thou/uL (4.0-11.0)
[2017-08-26 03:13] LABS: ALBUMIN 1.9 g/dL (3.4-5.0); CALCIUM 7.9 mg/dL (8.5-10.1); CREATININE 1.4 mg/dL (0.7-1.3); PHOSPHORUS 2.1 mg/dL (2.5-4.9); POTASSIUM 4.1 mmol/L (3.5-5.1)
[2017-08-26 03:27] LABS: INR 1.4; PROTIME 13.8 Seconds (9.3-11.4)
[2017-08-26 05:15] LABS: BE(vivo) 1.3 mmol/L (-2 to +3); HCO3 23.6 mmol/L (22.0-26.0); PCO2 30.7 mmHg (35.0-45.0); PO2 118.3 mmHg (80.0-100.0); pH 7.504 (7.360-7.450); sO2 98.6 % (92.0-98.0)
[2017-08-27] VITALS (39 sets, daily range): BP systolic 85–136; BP diastolic 14–83
[2017-08-28] VITALS (13 sets, daily range): BP systolic 84–107; BP diastolic 56–82
[2017-08-28 04:15] LABS: HEMATOCRIT 37.7 % (42.0-52.0); HEMOGLOBIN 12.7 gm/dL (14.0-18.0); MCH 31.5 pg (26.0-34.0); MCHC 33.7 g/dL (28.0-37.0); MCV 93.3 fL (80.0-100.0); RBC 4.04 mil/uL (4.50-6.00); RDW 15.3 % (10.5-14.5)
[2017-08-28 04:35] LABS: CALCIUM 8.5 mg/dL (8.5-10.1); CREATININE 1.6 mg/dL (0.7-1.3); PHOSPHORUS 3.7 mg/dL (2.5-4.9); POTASSIUM 4.7 mmol/L (3.5-5.1)
[2017-08-28 05:41] LABS: PROTIME 40.1 Seconds (9.3-11.4)
[2017-08-29] VITALS (28 sets, daily range): BP systolic 82–111; BP diastolic 56–80
[2017-08-29 05:07] LABS: INR 3.7; PROTIME 37.3 Seconds (9.3-11.4)
[2017-08-29 05:09] LABS: HEMATOCRIT 37.1 % (42.0-52.0); HEMOGLOBIN 12.2 gm/dL (14.0-18.0); MCH 31.4 pg (26.0-34.0); MCV 95.2 fL (80.0-100.0); RBC 3.89 mil/uL (4.50-6.00); RDW 15.5 % (10.5-14.5); WBC 23.8 thou/uL (4.0-11.0)
[2017-08-30] VITALS (16 sets, daily range): BP systolic 86–106; BP diastolic 59–70
[2017-08-30 04:04] LABS: INR 2.3
[2017-08-30 04:05] LABS: CREATININE 1.3 mg/dL (0.7-1.3); POTASSIUM 4.6 mmol/L (3.5-5.1)
[2017-08-30 04:50] LABS: HEMATOCRIT 37.6 % (42.0-52.0); HEMOGLOBIN 12.1 gm/dL (14.0-18.0); MCH 30.6 pg (26.0-34.0); MCHC 32.1 g/dL (28.0-37.0); MCV 95.1 fL (80.0-100.0); RBC 3.95 mil/uL (4.50-6.00); RDW 15.7 % (10.5-14.5); WBC 21.2 thou/uL (4.0-11.0)
[2017-08-31] VITALS: BP 95/66
[2017-08-31 04:00] VITALS: BP 112/82
[2017-08-31 04:52] LABS: INR 1.6; PROTIME 16.6 Seconds (9.3-11.4)
[2017-08-31 04:54] LABS: CALCIUM 7.9 mg/dL (8.5-10.1); CREATININE 1.4 mg/dL (0.7-1.3); POTASSIUM 4.8 mmol/L (3.5-5.1)
[2017-08-31 05:08] LABS: BE(vivo) 1.7 mmol/L (-2 to +3); HCO3 25.1 mmol/L (22.0-26.0); PCO2 35.5 mmHg (35.0-45.0); PO2 81.8 mmHg (80.0-100.0); pH 7.467 (7.360-7.450); sO2 96.7 % (92.0-98.0)
[2017-08-31 08:02] VITALS: BP 93/60
[2017-08-31 10:00] VITALS: BP 90/61
[2017-08-31 12:12] VITALS: BP 94/64
[2017-08-31] MEDS ORDERED: AUGMENTIN 875-1 EACH PO (12:37)
[2017-08-31] MEDS ORDERED: ASPIR 8181 MG PO (12:38)
[2017-08-31] MEDS ORDERED: COZAAR 25 MG TA25 M1 PO (12:38)
[2017-08-31] MEDS ORDERED: ATORVASTATIN CA40 MG PO (12:38)
[2017-08-31] MEDS ORDERED: COUMADIN 3 MG TA3 M1 PO (12:38)
[2017-08-31] MEDS ORDERED: CARVEDILOL3.125 MG PO (12:38)
[2017-08-31] MEDS ORDERED: ACETAMINOPHEN325 M1 PO (12:39)
[2017-08-31] MEDS ORDERED: LANTUS100 UNIT/M SUBQ (12:40)
[2017-08-31] MEDS ORDERED: NOVOLOG100 UNIT/1 SUBQ ×3 (12:40→12:41)
[2017-08-31] MEDS ORDERED: PREDNISONE 20 M20 MG PO (12:40)
== END 2017-08-31 15:04 | DRG 871 ==
LOC: ER 05:22 → EROBS 06:47 → ICU 06:47 → 2N 09:15 → ICU 08-22 03:03 → 2N 08-23 17:29 → ICU 08-25 13:24
PROVIDERS: Emergency Medicine; Family Medicine; Hospitalist; Internal Medicine; Internal Medicine Cardiovascular Disease; Internal Medicine Pulmonary Disease; Nurse Practitioner Family; Nurse Practitioner Gerontology
PROC: B2111ZZ Fluoroscopy of Multiple Coronary Arteries using Low Osmolar Contrast (ICD-10-PCS; principal; 2017-08-23)
PROC: 4A023N7 Measurement of Cardiac Sampling and Pressure, Left Heart, Percutaneous Approach (ICD-10-PCS; principal; 2017-08-23)
PROC: B2151ZZ Fluoroscopy of Left Heart using Low Osmolar Contrast (ICD-10-PCS; principal; 2017-08-23)
PROC: 5A09357 Assistance with Respiratory Ventilation, Less than 24 Consecutive Hours, Continuous Positive Airway Pressure (ICD-10-PCS; 2017-08-27)
DX: A41.9 Sepsis, unspecified organism (principal); I21.4 Non-ST elevation (NSTEMI) myocardial infarction; J96.01 Acute respiratory failure with hypoxia; J18.9 Pneumonia, unspecified organism; N17.0 Acute kidney failure with tubular necrosis; I10 Essential (primary) hypertension; G35 Multiple sclerosis; I95.9 Hypotension, unspecified; I25.5 Ischemic cardiomyopathy; E11.65 Type 2 diabetes mellitus with hyperglycemia; E78.00 Pure hypercholesterolemia, unspecified; I25.10 Atherosclerotic heart disease of native coronary artery without angina pectoris; K21.9 Gastro-esophageal reflux disease without esophagitis; Z88.8 Allergy status to other drugs, medicaments and biological substances; Z99.3 Dependence on wheelchair
CPT/HCPCS: 10078; 10081; 10203

== ENCOUNTER 2017-08-31 13:18 | Inpatient (IN) | payer BC ==
[~2017-08-31] VITALS: Ht 182.9 cm; Wt 75.5 kg
--- NOTE | ~2017-08-31 | EKG ---
[address] [place] [address] ELECTROCARDIOGRAM REPORT Name: LUCIABRIANA MARIA GUADALUPE Room #: 512-P ADM IN M.R.#: [id number] Admission: 08/31/17 Attend Phys: Jerrod Goss MD Discharge: Date of : 51 Report #: [id number] THIS REPORT FOR: //name// [facility] Test Date: 2017-09-12 Test Time: 22:17:44 Pat Name: BRIANA MYERS Department: Room: 512 P Gender: M Lambskin Trimmer: geovanni : 1955 Requested By: Cristela Garduno Order Number: [id number] MD: Measurements Intervals [place] Rate: 116 P: 78 [place]: 179 QRS: 107 QRSD: 104 T: 260 QT: 325 QTc: 452 Interpretive Statements Sinus tachycardia Ventricular premature complex Probable left atrial enlargement Left posterior fascicular block Low voltage with right axis deviation Nonspecific repol abnormality, lateral leads Compared to ECG 09/07/2017 05:47:21 Ventricular premature complex(es) now present Left posterior fascicular block now present Low QRS voltage now present Early repolarization now present Sinus rhythm no longer present Myocardial infarct finding no longer present ST (T wave) deviation no longer present [email or web address] By: 16 16 [facility], /YFN
--- NOTE | ~2017-08-31 | EKG ---
[address] [address] ELECTROCARDIOGRAM REPORT Name: BRIANA MYERSN Room #: 512-P ADM IN M.R.#: [id number] Admission: 08/31/17 Attend Phys: Jerrod Goss MD Discharge: Date of : 51 Report #: [id number] THIS REPORT FOR: //name// [facility] Test Date: 2017-09-12 Test Time: 10:24:48 Pat Name: BRIANA MYERS Department: Room: 512 P Gender: M Medical Staff Credentialing Coordinator: benson : 1955 Requested By: Hiren Jalloh Order Number: [id number] MD: Measurements Intervals [place] Rate: 97 P: 71 [place]: 181 QRS: 101 QRSD: 97 T: 252 QT: 366 QTc: 465 Interpretive Statements Sinus rhythm Low voltage with right axis deviation Abnormal lateral Q waves Anteroseptal infarct, old Nonspecific repol abnormality, diffuse leads Compared to ECG 09/07/2017 05:47:21 Low QRS voltage now present Q waves now present Early repolarization now present ST (T wave) deviation no longer present Myocardial infarct finding still present [email or web address] By: 1024 [facility] [place], [place] /YFN
--- NOTE | ~2017-08-31 | EKG ---
[address] [address] ELECTROCARDIOGRAM REPORT Name: BRIANA MYERS Room #: 512-P [facility] IN M.R.#: [id number] Admission: 08/31/17 Attend Phys: Jerrod Goss MD Discharge: 09/12/17 Date of : 51 Report #: [id number] THIS REPORT FOR: //name// [facility] Test Date: 2017-09-12 Test Time: 22:53:37 Pat Name: BRIANA MYERS Department: Room: 512 P Gender: M Professor Of Communication Arts: geovanni : 1955 Requested By: Cristela Garduno Order Number: [id number] MD: Lavelle Bernabe Measurements Intervals [place] Rate: 106 P: 76 [place]: 151 QRS: 103 QRSD: 107 T: 259 QT: 444 QTc: 590 Interpretive Statements Sinus tachycardia Premature ventricular complex Low voltage High lateral infarct, age indeterminate Compared to ECG 09/12/2017 10:24:48 No significant change was found Electronically Signed On 09-13-2017 16:38:43 CDT by Lavelle Bernabe [email or web address] <ELECTRONICALLY SIGNED> By: Lavelle Bernabe MD, [facility] 09/13/17 1638 2253 2253 Lavelle Bernabe MD, [facility] /EPI
--- NOTE | ~2017-08-31 | HC ---
[facility] [place] [address] CONSULTATION Name: BRIANA MYERS Room #: 512-P [facility] IN M.R.#: [id number] Admission: 08/31/17 Attend Phys: Jerrod Goss MD Discharge: Date of : 51 Report #: [id number] THIS REPORT FOR: //name// CC: Jerrod Redmond DATE OF SERVICE: 09/10/2017 CONSULTATION: Infectious Diseases. HISTORY OF PRESENT ILLNESS: Briana Myers is a 62-year-old white male who is seen on the rehab unit because of concerns regarding possible pneumonia. The patient was hospitalized at [facility], 08/21-08/31. He had an acute myocardial infarction and went into respiratory failure requiring a ventilator. The patient also developed renal insufficiency, worse heart failure, was found to have an apical cardiac thrombus. The patient was treated with Zosyn for 8 days in the hospital. He was discharged to rehab on 08/31 and antibiotics were deescalated to Augmentin. He completed the Augmentin on 09/07. In the rehab unit, the patient was noted to have continued leukocytosis, cough and his chest x-ray was interpreted as showing increased basal infiltrates. In addition, the patient was becoming more hyperglycemic. There was a concern that he may be developing additional sepsis after stopping the antibiotic therapy. Infectious Diseases consultation was requested. PAST MEDICAL HISTORY: Significant for multiple sclerosis with baseline paraparesis requiring the patient to function at the wheelchair level. He was independent with stand pivot transfers prior to coming to the hospital on 08/21. The patient also has diabetes and hypertension. Other diagnoses Include coronary artery disease, congestive heart failure, COPD. ALLERGIES: THE PATIENT IS ALLERGIC TO COMPAZINE AND REYES INHIBITORS. FAMILY HISTORY: Noncontributory. SOCIAL HISTORY: The patient is . He lives by himself and was independent. He was taking care of his mother until she even as he was in the wheelchair. 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 No history of tobacco, alcohol or drugs. REVIEW OF SYSTEMS: The patient says he does not feel like he has an infection. He denies feeling fevers or chills. He thinks his strength is gradually improving. The patient denies headache, sinus congestion, drainage, sore throat, trouble swallowing. The patient does have some cough and feels congested. He feels dyspnea with exertion and feels that he would benefit from a higher dose of prednisone. He says this usually relieve his congestion and [facility] [address] [place] [address] CONSULTATION Name: BRIANA MYERS Room #: 512-P [facility] IN ..#: [id number] Admission: 08/31/17 Attend Phys: Jerrod Goss MD Discharge: Date of : 51 Report #: [id number] dyspnea. The patient denies nausea, vomiting, diarrhea or constipation. The patient denies urinary complaints. He has increased weakness and debilitation after his hospitalization. PHYSICAL EXAMINATION: GENERAL: The patient appears his stated age, alert, oriented, comfortable, pleasant, not in any distress. VITAL SIGNS: Show maximum temperature in the last 3 days is 99.6. SKIN: Shows no rash, lesion or exanthem. ENT: Essentially unremarkable. The patient has a very slow speech, but is easy to understand and expresses complex concepts fluently. NECK: Supple. HEART: Sounds S1, S2. LUNGS: Breath sounds are coarse with rhonchi and a few wheezes. I cannot appreciate any rales. The patient was not dyspneic. ABDOMEN: Belly is soft, not tender. EXTREMITIES: Have multiple sclerosis changes, but otherwise unremarkable. LABORATORY DATA: The patient demonstrates a white count of 8.7. This has been a steady decrease since his admission white count of 26,000; hemoglobin 11; hematocrit 32.5%; platelets 201,000. Hemoglobin A1c is 6.3. Electrolytes are normal. BUN 31, creatinine 1.1, down from 1.6. Glucose was 94. Procalcitonin was undetectable less than 0.5. The BNP was elevated at 5641. Chest x-ray was interpreted as increased infiltrates, right more than left. These were somewhat worse than the previous radiograph. SUMMARY: The patient who is recovering from acute myocardial infarction with respiratory failure, possible aspiration. He has essentially normal temperature, has normalized his white count. His chest x-ray is somewhat worse, but he also has an elevated BNP of 5600 and ejection fraction was measured at 25%. At this time, I do not think the patient has infection. I do not really appreciate much of an asthmatic component. I think the patient probably just has a heart failure exacerbating his post-hospitalization debilitation. I would suggest that we continue no antibiotic therapy. The patient may benefit from more aggressive diuresis, and continue comprehensive rehabilitation. We should follow the patient for rising white count, rising temperature and follow the BNP. At some point, a followup chest x-ray would be in order as well. [facility] [address] [place] [address] CONSULTATION Name: BRIANA MYERS Room #: 512-P ADM IN M.R.#: [id number] Admission: 08/31/17 Attend Phys: Jerrod Goss MD Discharge: Date of : 51 Report #: [id number] I appreciate the opportunity of input in the care of this pleasant gentleman. Dr. Peoples will return on Tuesday for additional followup. <ELECTRONICALLY SIGNED> By: Oliver Doherty MD 09/12/17 0108 0928 2235 Oliver Doherty MD /nt
--- NOTE | ~2017-08-31 | HC ---
[facility] [place] [address] CONSULTATION Name: BRIANA MYERS Room #: 512-P ADM IN M.R.#: [id number] Admission: 08/31/17 Attend Phys: Jerrod Goss MD Discharge: Date of : 51 Report #: [id number] THIS REPORT FOR: //name// CC: Jerrod Redmond DATE OF SERVICE: 09/04/2017 NEUROBEHAVIORAL STATUS EXAMINATION ATTENDING PHYSICIAN: Jerrod Goss M.D. SHEARER HELPER: Fernie Fulton, PhD CLINICAL PRESENTATION: The patient is a 62-year-old male admitted to the [facility] Rehabilitation Unit for comprehensive inpatient rehabilitation program to improve functional mobility and activities of daily living and self-care and mental status secondary to deficits from multiple sclerosis and lower extremity paresis. His diagnoses include non-ST elevation myocardial infarction with extensive anterior lateral and inferior wall akinesis with multivessel coronary artery disease. He also has significant generalized weakness and debilitation, acute respiratory failure with pneumonia and bilateral infiltrates, acute renal insufficiency, hypertension and diabetes mellitus type 2. A complete description of his medical condition and history can be found in his medical records. Neuropsychological consultation was requested to provide assistance in the assessment of cognitive and emotional status and to provide recommendations and services. Prior to this most recent admission, he was living in his own apartment without assistance. He had 2 brothers, 1 brother is living in [place]. A very close friend was visiting during my initial assessment who is living in [place], [place]. The patient has 1 son that lives outside the [place] area. He is reported to be supportive. The patient has completed a master's degree from [employer] in [place]. 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 The patient has been on disability for about 30 years. TECHNIQUES UTILIZED: Clinical interview, review of medical records, staff consultation and behavioral observation, mini mental status exam 2 standard version, clock drawing and family interview -- a close friend. EXAMINATION FINDINGS: The patient was alert and cooperative with the assessment. He had difficulty in describing the reason for his hospitalization. His speech is very slow and dysarthric. Problem solving speed is reduced and he was tangential and verbose at times during the assessment. He describes subjective anxiety and frustration in the management of his blood sugar. Contributing to his anxiety is a desire for more control [facility] [address] [place] [address] CONSULTATION Name: LUCIABRIANA DELA CRUZN Room #: 512-P [facility] IN M.R.#: [id number] Admission: 08/31/17 Attend Phys: Jerrod Goss MD Discharge: Date of : 53 Report #: [id number] over diabetic management. He describes his symptoms to include primarily difficulty with sleep. He does not report problems with word finding, memory or appetite. His friend indicates that his presentation in verbal expression is longstanding for the last 20 years. His performance on the MMSE 2 brief version is within normal limits with a raw score of 14 of 16. The patient was 3/3 for initial registration, 5/5 for orientation to time and place. He was 1/3 for immediate recall of 3 items after a brief time delay and distraction. However, tangential ideation interfered with his performance on the assessment. Performance on the MMSE 2 standard version is within normal limits with a raw score 26 of 30. He was 5 of 5 for serial 7s, 2/2 for naming, 1 of 1 for repetition, 3/3 for auditory comprehension. He was able to read and follow a single command. The patient had difficulty in writing a sentence and copying a simple geometric design. The patient also had difficulty with clock drawing. Initially, impairment was noted with visual spatial organization. The patient is presenting with neurocognitive disorder likely affecting memory, attention/concentration and visual motor coordination and organization. Decreased speed of processing and problem solving is also noted. Increased anxiety is suggested. 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 Unspecified anxiety disorder. RECOMMENDATIONS: The patient will benefit from the use of compensatory strategies to assist in immediate recall, attention/concentration and to allow for diminished problem solving speed. Decreased insight may affect safety. However, his apartment is described as well organized. Increased environmental services will likely be necessary to maintain safety. Allowing the patient opportunities for exerting increased control with the provision of choices may assist his overall adjustment. The patient would benefit from a more thorough neuropsych assessment upon stabilization of his medical condition and return home. Thank you very much for allowing me to provide the consultation on this patient. <ELECTRONICALLY SIGNED> By: Fernie Fulton, PhD 09/06/17 1211 [id number] [id number] Fernie Fulton, PhD /nt
--- NOTE | ~2017-08-31 | EKG ---
[address] [place] [employer] [address] ELECTROCARDIOGRAM REPORT Name: BRIANA MYERS Room #: 512-P ADM IN M.R.#: [id number] Admission: 08/31/17 Attend Phys: Jerrod Goss MD Discharge: Date of : 51 Report #: [id number] THIS REPORT FOR: //name// [facility] Test Date: 2017-09-07 Test Time: 05:47:21 Pat Name: BRIANA MYERS Department: Room: 512 P Gender: M Clock Smith: fredrick : 1955 Requested By: Cristela Garduno Order Number: [id number] MD: Lavelle Bernabe Measurements Intervals [place] Rate: 88 P: 86 TN: 168 QRS: 103 QRSD: 102 T: -89 QT: 375 QTc: 454 Interpretive Statements Sinus rhythm right axis deviation Consider anterolateral infarct Borderline ST depression, diffuse leads Compared to ECG 08/21/2017 06:39:52 Right-axis deviation now present Nonspecific change in the ST and T-wave segments heart rate has slowed Electronically Signed On 09-07-2017 8:16:41 HOSPICE MUSIC THERAPY by Lvaelle Bernabe [email or web address] <ELECTRONICALLY SIGNED> By: Lavelle Bernabe MD, [facility] 09/07/17 0816 0547 0547 Lavelle Bernabe MD, [facility] /EPI
--- NOTE | ~2017-08-31 | HC ---
[facility] [place] [address] CONSULTATION Name: BRIANA MYERS Room #: 512-P ADM IN M.R.#: [id number] Admission: 08/31/17 Attend Phys: Jerrod Goss MD Discharge: Date of : 53 Report #: [id number] THIS REPORT FOR: //name// CC: Jerrod Goss Gayle Redmond Patient of Dr. Goss. LOCATION: [facility], room 512. SUBJECTIVE: One of apparently repeated admissions for this 62-year-old white male with multiple sclerosis. The patient also has a variety of other medical problems including apparently as he says 50-year history of diabetes, controlled with insulin. Most recently, the patient has been on moderate to high doses of lispro prior to meals and either Levemir or Glargine at bedtime. It is not clear which one he has been using most recently as the patient is slightly confused. He eats 3 meals per day and snacks occasionally. His activity is extremely limited. He is somewhat vague on the frequency or results of glucose monitoring, but they appear to be in the 100s to mid 200 range. The patient is not aware of any recent hemoglobin A1c determinations. Since his hospitalization, the patient has been treated with lispro prior to meals and Glargine at bedtime with apparent poor control. Otherwise, the patient is not able to offer any other pertinent endocrine history. CURRENT MEDICATIONS: At the time of consultation include the insulin regimen as mentioned above, warfarin, lactobacillus, budesonide, albuterol, multivitamins, aspirin, fluticasone, famotidine, guaifenesin, atorvastatin, losartan, carvedilol, acetaminophen, 5 mg of prednisone per day and possibly other medication. OBJECTIVE: LABORATORY DATA: Hemoglobin A1c not available. Sodium 140, potassium 4.1, chloride 108, CO2 31, creatinine 1.0. TSH 1.656. PHYSICAL EXAMINATION: VITAL SIGNS: Well-nourished, well-developed, 62-year-old white male who moves poorly and is somewhat slow with speech. Height and weight are per chart. GENERAL: The patient is afebrile, heart rate 98 and regular, blood pressure 100/70. Skin is warm and moist without abnormality. PERRL. NECK: Supple. CHEST: Clear. HEART: Regular rhythm without murmurs, rubs or gallops. ABDOMEN: Benign. EXTREMITIES: Show dressings over the distal lower extremities. Peripheral pulses are 2+ and equal bilaterally. NEUROLOGIC: The patient is diffusely weak throughout [place] [address] CONSULTATION Name: BRIANA MYERS Room #: [facility] IN M.R.#: [id number] Admission: 08/31/17 Attend Phys: Jerrod Goss MD Discharge: Date of : 51 Report #: [id number] diminished. ASSESSMENT: Type 1 diabetes in poor control on current regimen. The patient's glucose control will be aggravated by current steroid dosage. PLAN: 1. We will evaluate prior control with hemoglobin A1c. 2. We will place the patient on appropriate dietary intake and then monitor glucose on a regular basis, readjusting insulin doses as needed to improve glucose control. Thank you very much for this consultation. I will continue to follow the patient with you for management of diabetes mellitus. <ELECTRONICALLY SIGNED> By: Jerrod Michel MD 09/10/17 1123 1446 [id number] Jerrod Michel MD /nt
--- NOTE | ~2017-08-31 | PLAN ---
[facility] [place] [address] REHAB UNIT PLAN OF CARE Name: BRIANA MYERS Room #: 512-P [facility] IN M.R.#: [id number] Admission: 08/31/17 Attend Phys: Jerrod Goss MD Discharge: 09/12/17 Date of : 51 Report #: [id number] THIS REPORT FOR: //name// CC: Jerrod Goss Gayle Redmond DATE OF SERVICE: 09/02/2017 PROGRESS NOTE/OVERALL PLAN OF CARE SUBJECTIVE: The patient is seen back today in followup. He is in no distress. Temperature 36.9, pulse 97, respirations 18, blood pressure 81/52. He has had the Magdaleno catheter removed and noted to be voiding. He was last noted to be mod assist with bed to chair transfers with squat pivot. In occupational therapy, lower body dressing has been contact guard assistance. He is on a regular diet with all liquids. ASSESSMENT: 1. Lower extremity paraparesis. 2. Multiple sclerosis, premorbidly wheelchair bound. 3. Non-ST elevation myocardial infarction with extensive anterolateral and inferior wall akinesis with multivessel coronary artery disease. He has the LifeVest. 4. Significant generalized weakness and debilitation. 5. Acute respiratory failure with pneumonia, bilateral infiltrates. 6. Acute renal insufficiency. 7. Hypertension. 8. Diabetes mellitus type 2. PLAN: The overall plan of care is based on the preadmission screen, post-admission physician evaluation and information garnered from therapy assessments. 1. Estimated length of stay probably at least 1-2 weeks and likely longer. 2. Medical prognosis is reasonably good. 3. Anticipated interventions include interdisciplinary acute inpatient rehabilitation program. 4. Anticipated functional outcomes would be for the patient to again become independent at a manual wheelchair level, so he can return back home. 5. Discharge destination would be back to his apartment, where he lives by himself. 6. Expected therapy by discipline includes PT and OT and Speech 1 hour per day each 5 days a week throughout the duration of the acute inpatient rehabilitation [address] [address] REHAB UNIT PLAN OF CARE Name: BRIANA MYERS Room #: 512-P [facility] IN M.R.#: [id number] Admission: 08/31/17 Attend Phys: Jerrod Goss MD Discharge: 09/12/17 Date of : 51 Report #: [id number] stay. We may be able to taper off the speech therapy some. He was receiving that for aspiration precautions. <ELECTRONICALLY SIGNED> By: Jerrod Goss MD 09/27/17 1030 1040 2244 Jerrod Goss MD /nt
--- NOTE | ~2017-08-31 | H ---
[facility] [place] [address] HISTORY AND PHYSICAL Name: BRIANA MYERS Room #: 504-2 ADM IN M.R.#: [id number] Admission: 08/31/17 Attend Phys: Jerrod Goss MD Discharge: Date of : 53 Report #: [id number] THIS REPORT FOR: //name// CC: Jerrod Redmond DATE OF SERVICE: 09/01/2017 HISTORY AND PHYSICAL/POST-ADMISSION PHYSICIAN EVALUATION HISTORY OF PRESENT ILLNESS: The patient is a 62-year-old white male with history of multiple sclerosis, premorbidly wheelchair bound, admitted with chest pain, increased with activity. He was diagnosed with a non-ST elevation CT. He underwent cardiac catheterization, which revealed multivessel disease. He has anterolateral and inferior wall akinesis with decreased left ventricular ejection fraction of 20%-25%. He is not felt to be a surgical candidate. He has been fitted with a LifeVest. His course has been complicated by acute respiratory failure with pneumonia. He has had hypertension and acute renal insufficiency. He has had a significant decline from his premorbid status and he has now been admitted for acute in-hospital inpatient rehabilitation. PAST MEDICAL HISTORY: Includes multiple sclerosis diagnosed in 1986. He has been wheelchair bound. He has diabetes mellitus type 1 and hypertension. MEDICATIONS: Please see the full medication listing. The list includes his vitamins, herbals, and supplements. ALLERGIES: REYES INHIBITORS AND PROCHLORPERAZINE. HABITS: No history of tobacco or alcohol abuse. SOCIAL HISTORY: Lives in an apartment. Premorbidly wheelchair bound and could transfer independently and was independent, doing his ADLs. He noted that his bathroom was not actually accessible, but that is another wheelchair inside the bathroom for any transfers from one wheelchair into the other wheelchair through the bathroom door and then utilize at the second wheelchair in the bathroom to transfer on to the actual toilet. He is able to do some very limited standing as part of a stand pivot transfer. He also has grab bars in his bathroom and shower. He has a son in [place]. REVIEW OF SYSTEMS: No complaints of chest pain, shortness of breath, or abdominal discomfort. He has concern regarding his decreased strength and decreased endurance. No focal extremity pain complaints. He does have some chronic double vision. He notes that he did not have voiding issues premorbidly and we did remove his catheter for a voiding trial upon being admitted. [address] [address] HISTORY AND PHYSICAL Name: BRIANA MYERS Room #: 504-2 ADM IN ..#: [id number] Admission: 08/31/17 Attend Phys: Jerrod Goss MD Discharge: Date of : 53 Report #: [id number] FAMILY HISTORY: Noncontributory. PHYSICAL EXAMINATION: GENERAL: A 62-year-old bearded white male in no obvious distress. He speaks slowly, but is easily understandable. VITAL SIGNS: His last recorded temperature is 98.3, pulse 91, respirations 18, blood pressure is 84/49. HEENT: Facies appeared symmetric. EOMs, he may have some disconjugate gaze with upward gaze nystagmus. CHEST: Sounded clear to auscultation. CARDIOVASCULAR: Regular rate and rhythm. ABDOMEN: Bowel sounds positive, nontender. GENITOURINARY AND RECTAL: Deferred. The patient was a little groggy as he was seen earlier. NEUROLOGIC: Functional range of motion of both upper extremities with strength grade 4-. DTRs are 1. Negative Ceron's. Lower extremities: He actually has strength probably a grade 3-3+/5. There is some clonus of the right ankle. His Magdaleno catheter was removed and he has been able to void with a residual of only 40 mL. ASSESSMENT: A 62-year-old white male with the following problem list: 1. Lower extremity paraparesis. 2. Multiple sclerosis, premorbidly wheelchair bound. 3. Non-ST elevation myocardial infarction with extensive anterior lateral and inferior wall akinesis with multivessel coronary artery disease. He has the LifeVest. 4. Significant generalized weakness and debilitation. 5. Acute respiratory failure with pneumonia, bilateral infiltrates. 6. Acute renal insufficiency. 7. Hypertension. 8. Diabetes mellitus type 2. PLAN: The patient is admitted for acute in-hospital inpatient rehabilitation. From a postadmission physician evaluation perspective, there are no relevant changes since the preadmission screening. Please see the above review of prior and current medical and functional conditions and comorbidities. Please see the patient's previous and current functional status. As far as risk of complications, he does have the multiple medical comorbidities as noted above. Initial plan of care involves the interdisciplinary acute inpatient rehabilitation program with the goal of maximizing the patient's functional independence so that he can hopefully return back to his prior living situation. Measurable functional goals would be for him to improve his strength as far as bed mobility and transfers and basic ADLs and get to the point where he can return back to his home setting. As far as prognosis is reasonably good with estimated length of stay probably at least 10 days to 2 weeks and likely longer as warranted. Potential barriers would include his multiple medical [facility] [address] [place] [address] HISTORY AND PHYSICAL Name: BRIANA MYERS Room #: 504-2 ADM IN ..#: [id number] Admission: 08/31/17 Attend Phys: Jerrod Goss MD Discharge: Date of : 51 Report #: [id number] comorbidities and decreased functional status. The patient meets diagnostic criteria for an acute in-hospital inpatient rehabilitation stay. He meets the medical necessity criteria and we will have the urban design consultant physicians continue to follow while he is on the acute rehab tejeda. He does have the tolerance for therapies and has an appropriate discharge goals back to the home setting. <ELECTRONICALLY SIGNED> By: Jerrod Goss MD 09/01/17 1424 0714 0737 Jerrod Goss MD /[facility]
[~2017-08-31 13:18] MED LIST changes: +ACETAMINOPHEN325 M1 PO; +ASPIR 8181 MG PO; +ATORVASTATIN CA40 MG PO; +AUGMENTIN 875-1 EACH PO; +CARVEDILOL3.125 MG PO; +COUMADIN 3 MG TA3 M1 PO; +COZAAR 25 MG TA25 M1 PO; +LANTUS100 UNIT/M SUBQ; +NOVOLOG100 UNIT/1; +NOVOLOG100 UNIT/1 SUBQ; +ZANTAC 150MG T150 MG PO
[2017-08-31 15:00] VITALS: BP 98/66
[2017-08-31 17:49] VITALS: BP 97/65
[2017-08-31 20:30] VITALS: BP 84/49
[2017-09-01 06:00] LABS: HEMOGLOBIN 11.2 gm/dL (14.0-18.0); MCH 32.3 pg (26.0-34.0); MCV 94.9 fL (80.0-100.0); RBC 3.48 mil/uL (4.50-6.00); RDW 15.5 % (10.5-14.5); WBC 16.9 thou/uL (4.0-11.0)
[2017-09-01 06:12] LABS: INR 1.4; PROTIME 13.9 Seconds (9.3-11.4)
[2017-09-01 06:13] LABS: CALCIUM 7.8 mg/dL (8.5-10.1); POTASSIUM 4.5 mmol/L (3.5-5.1)
[2017-09-01 08:37] VITALS: BP 93/60
[2017-09-01 19:50] VITALS: BP 110/71
[2017-09-02 05:06] LABS: INR 1.4
[2017-09-02 08:00] VITALS: BP 81/52
[2017-09-02 20:00] VITALS: BP 99/62
[2017-09-03 03:28] LABS: INR 1.4
[2017-09-03 08:35] VITALS: BP 93/56
[2017-09-03 21:05] VITALS: BP 97/60
[2017-09-04 06:55] LABS: INR 1.5; PROTIME 15.1 Seconds (9.3-11.4)
[2017-09-04 08:45] VITALS: BP 98/57
[2017-09-05 05:23] LABS: CALCIUM 7.7 mg/dL (8.5-10.1); POTASSIUM 4.1 mmol/L (3.5-5.1)
[2017-09-05 05:32] LABS: INR 1.5; PROTIME 15.2 Seconds (9.3-11.4)
[2017-09-05 06:02] LABS: ABSOLUTE NEUTROPHILS 10.7 thou/uL (1.4-8.2); BASOPHILS 0.1 % (0.0-2.0); EOSINOPHILS 0.8 % (0.0-3.0); HEMOGLOBIN 11.2 gm/dL (14.0-18.0); LYMPHOCYTES 13.4 % (24.0-44.0); MCH 31.1 pg (26.0-34.0); MCHC 32.8 g/dL (28.0-37.0); MCV 94.9 fL (80.0-100.0); MONOCYTES 5.7 % (1.0-8.0); PLATELET COUNT 290 thou/uL (150-400); RBC 3.59 mil/uL (4.50-6.00); RDW 15.6 % (10.5-14.5); WBC 13.3 thou/uL (4.0-11.0)
[2017-09-05 08:00] VITALS: BP 90/60
[2017-09-06 06:13] LABS: INR 1.6; PROTIME 16.7 Seconds (9.3-11.4)
[2017-09-06 08:00] VITALS: BP 88/55
[2017-09-06 19:45] VITALS: BP 98/67
[2017-09-07 05:02] LABS: INR 1.9; PROTIME 19.5 Seconds (9.3-11.4)
[2017-09-07 08:00] VITALS: BP 103/70
[2017-09-07 20:00] VITALS: BP 103/62
[2017-09-08 07:42] LABS: INR 2.4; PROTIME 24.2 Seconds (9.3-11.4)
[2017-09-08 08:40] VITALS: BP 103/66
[2017-09-08 20:15] VITALS: BP 93/62
[2017-09-09 06:54] LABS: PROTIME 27.9 Seconds (9.3-11.4)
[2017-09-09 06:58] LABS: INR 2.8
[2017-09-09 07:22] VITALS: BP 93/58
[2017-09-09 18:00] VITALS: BP 100/55
[2017-09-09 19:23] VITALS: BP 91/59
[2017-09-10 00:11] LABS: ESTIMATED AVERAGE GLUCOSE 134 mg/dL (()); GLYCOHEMOGLOBIN (HGB A1C) 6.3 % (4.8-5.6)
[2017-09-10 03:27] LABS: ABSOLUTE NEUTROPHILS 7.3 thou/uL (1.4-8.2); BASOPHILS 1.1 % (0.0-2.0); EOSINOPHILS 0.5 % (0.0-3.0); HEMATOCRIT 32.5 % (42.0-52.0); LYMPHOCYTES 8.3 % (24.0-44.0); MCH 32.1 pg (26.0-34.0); MCV 94.4 fL (80.0-100.0); MONOCYTES 6.7 % (1.0-8.0); PLATELET COUNT 201 thou/uL (150-400); POLYS 83.4 % (36.0-66.0); RBC 3.44 mil/uL (4.50-6.00); RDW 16.4 % (10.5-14.5); WBC 8.7 thou/uL (4.0-11.0)
[2017-09-10 03:37] LABS: PROTIME 30.6 Seconds (9.3-11.4)
[2017-09-10 03:59] LABS: CALCIUM 7.8 mg/dL (8.5-10.1); CREATININE 1.1 mg/dL (0.7-1.3); MAGNESIUM 1.9 mg/dL (1.8-2.4)
[2017-09-10 08:00] VITALS: BP 89/55
[2017-09-10 16:07] LABS: C-PEPTIDE < 0.1 ng/mL (1.1-4.4)
[2017-09-10 20:00] VITALS: BP 97/54
[2017-09-11 08:07] VITALS: BP 96/53
[2017-09-11 08:38] LABS: ABSOLUTE NEUTROPHILS 6.1 thou/uL (1.4-8.2); BASOPHILS 0.7 % (0.0-2.0); EOSINOPHILS 0.3 % (0.0-3.0); HEMATOCRIT 33.2 % (42.0-52.0); HEMOGLOBIN 11.2 gm/dL (14.0-18.0); LYMPHOCYTES 7.1 % (24.0-44.0); MCH 32.4 pg (26.0-34.0); MCHC 33.9 g/dL (28.0-37.0); MCV 95.8 fL (80.0-100.0); MONOCYTES 5.9 % (1.0-8.0); PLATELET COUNT 202 thou/uL (150-400); RBC 3.46 mil/uL (4.50-6.00); RDW 16.6 % (10.5-14.5); WBC 7.1 thou/uL (4.0-11.0)
[2017-09-11 08:46] LABS: CREATININE 1.1 mg/dL (0.7-1.3); POTASSIUM 4.2 mmol/L (3.5-5.1)
[2017-09-11 19:15] LABS: BE(vivo) 0.3 mmol/L (-2 to +3); HCO3 24.2 mmol/L (22.0-26.0); PCO2 36.9 mmHg (35.0-45.0); PO2 72.7 mmHg (80.0-100.0); pH 7.435 (7.360-7.450); sO2 95.2 % (92.0-98.0)
[2017-09-11 19:35] VITALS: BP 133/77
[2017-09-12 04:33] LABS: ABSOLUTE NEUTROPHILS 6.4 thou/uL (1.4-8.2); BASOPHILS 0.4 % (0.0-2.0); HEMATOCRIT 35.9 % (42.0-52.0); HEMOGLOBIN 12.1 gm/dL (14.0-18.0); LYMPHOCYTES 3.8 % (24.0-44.0); MCH 32.4 pg (26.0-34.0); MCHC 33.6 g/dL (28.0-37.0); MCV 96.5 fL (80.0-100.0); MONOCYTES 2.6 % (1.0-8.0); PLATELET COUNT 198 thou/uL (150-400); POLYS 93.2 % (36.0-66.0); RBC 3.72 mil/uL (4.50-6.00); RDW 16.9 % (10.5-14.5); WBC 6.8 thou/uL (4.0-11.0)
[2017-09-12 04:35] LABS: INR 2.9; PROTIME 29.3 Seconds (9.3-11.4)
[2017-09-12 04:37] LABS: CALCIUM 8.2 mg/dL (8.5-10.1); CREATININE 1.2 mg/dL (0.7-1.3)
[2017-09-12 04:47] LABS: POTASSIUM 5.6 mmol/L (3.5-5.1)
[2017-09-12 07:40] VITALS: BP 109/73
[2017-09-12 17:24] LABS: BE(vivo) -0.7 mmol/L (-2 to +3); HCO3 23.1 mmol/L (22.0-26.0); PCO2 35.2 mmHg (35.0-45.0); PO2 96.7 mmHg (80.0-100.0); pH 7.434 (7.360-7.450); sO2 97.6 % (92.0-98.0)
[2017-09-12 20:00] VITALS: BP 110/72
[2017-09-12 22:46] VITALS: BP 117/78
[2017-09-13 23:08] LABS: ADENOVIRUS Negative (Negative); INFLUENZA A Negative (Negative); INFLUENZA B Negative (Negative); METAPNEUMOVIRUS Negative (Negative); PARAINFLUENZA 1 Negative (Negative); PARAINFLUENZA 2 Negative (Negative); PARAINFLUENZA 3 Negative (Negative); RHINOVIRUS Negative (Negative); RSV A Positive (Negative); RSV B Negative (Negative)
== END 2017-09-12 23:20 | disposition short-term general hospital (02) | DRG 58 ==
PROVIDERS: Hospitalist; Internal Medicine Endocrinology, Diabetes & Metabolism; Internal Medicine Pulmonary Disease; Nurse Practitioner; Physical Medicine & Rehabilitation
DX: G35 Multiple sclerosis (principal); I21.4 Non-ST elevation (NSTEMI) myocardial infarction; J18.9 Pneumonia, unspecified organism; J96.01 Acute respiratory failure with hypoxia; N17.9 Acute kidney failure, unspecified; J47.1 Bronchiectasis with (acute) exacerbation; I50.20 Unspecified systolic (congestive) heart failure; J44.1 Chronic obstructive pulmonary disease with (acute) exacerbation; J45.901 Unspecified asthma with (acute) exacerbation; G82.20 Paraplegia, unspecified; I25.5 Ischemic cardiomyopathy; E78.00 Pure hypercholesterolemia, unspecified; R53.81 Other malaise; I25.10 Atherosclerotic heart disease of native coronary artery without angina pectoris; I10 Essential (primary) hypertension; R41.9 Unspecified symptoms and signs involving cognitive functions and awareness; F41.9 Anxiety disorder, unspecified; D72.829 Elevated white blood cell count, unspecified; E11.65 Type 2 diabetes mellitus with hyperglycemia; E11.649 Type 2 diabetes mellitus with hypoglycemia without coma; R05 Cough; J44.9 Chronic obstructive pulmonary disease, unspecified; Z99.3 Dependence on wheelchair; Z79.4 Long term (current) use of insulin; Z88.8 Allergy status to other drugs, medicaments and biological substances; T38.0X5A Adverse effect of glucocorticoids and synthetic analogues, initial encounter; Y92.89 Other specified places as the place of occurrence of the external cause; K21.9 Gastro-esophageal reflux disease without esophagitis
CPT/HCPCS: 10092; 10112

== ENCOUNTER 2017-09-12 23:43 | Inpatient (IN) | payer BC ==
[~2017-09-12] VITALS: Ht 182.9 cm; Wt 80.9 kg
--- NOTE | ~2017-09-12 | H ---
[facility] [place] [address] HISTORY AND PHYSICAL Name: BRIANA MYERS Room #: 217-P [facility] IN M.R.#: [id number] Admission: 09/12/17 Attend Phys: Sharonda Martins Discharge: 09/16/17 Date of : 51 Report #: [id number] THIS REPORT FOR: //name// CC: Josh Redmond ATTENDING PHYSICIAN: Josh Keller MD. PRIMARY CARE PHYSICIAN: Gayle Redmond MD. CHIEF COMPLAINT: Respiratory distress. HISTORY OF PRESENT ILLNESS: The patient is a 62-year-old male with a complicated past medical history. He was initially admitted here at [facility] on 08/21, was diagnosed with a non-ST elevation VA. He was taken to laborer [facility] and had a severe 3-vessel disease, but was not a surgical candidate, and it was determined that he should continue with aggressive medical treatment. Prior to that, he did not have a history of coronary artery disease. He was noted to have an EF of 20-25%. He has been placed on a LifeVest. Eventually, he developed respiratory failure and was transferred to ICU and was on BiPAP. He also had acute kidney injury. He was diagnosed with an apical cardiac thrombus and has been started on Coumadin. He was treated for pneumonia with Zosyn for 8 days. He was transferred to acute rehabilitation here at [facility] where he has been for the last few weeks. He is being readmitted to the hospital for respiratory problems. He has had increasing shortness of breath. Today, he went down for a CT of the chest done and on transferring back to the rehab unit, he was very diaphoretic and tachypneic. He was requiring more oxygen. His lungs sounded very coarse, and he was transferred back to inpatient status. He has since been given a dose of Lasix and has been diuresing well. Overall, he feels like he overdid it during the day between transferring to Radiology for a chest x-ray earlier in the day, followed by a CT later in the day as well as his physical therapy. He says he has had a cough for about 2 days that has been mostly nonproductive, but today he did have some clear colored sputum. He denies any chest pain. He says he has not been having any problems swallowing. He is currently not in any respiratory distress. PAST MEDICAL HISTORY: Multiple sclerosis, diabetes, hypertension, coronary artery disease, ischemic cardiomyopathy with an EF of 20-25%, COPD versus asthma, chronic bronchiectasis, GERD, apical cardiac thrombus. PAST SURGICAL HISTORY: Sinus surgery, right arm repair after fracture. ALLERGIES: COMPAZINE AND REYES INHIBITORS. HOME MEDICATIONS: Reviewed from the rehab unit. He was recently started on Solu-Medrol 80 mg IV q.8 hours and had been on Augmentin and Zithromax p.o. [address] [address] HISTORY AND PHYSICAL Name: BRIANA MYERS Room #: 217-P [facility] IN M.R.#: [id number] Admission: 09/12/17 Attend Phys: Sharonda Martins Discharge: 09/16/17 Date of : 51 Report #: [id number] SOCIAL HISTORY: The patient is and had been living alone. 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 Denies any history of tobacco, alcohol or drug use. He has not been ambulatory in about 30 years due to MS and is wheelchair bound. FAMILY HISTORY: Negative for any lung problems. Negative for MS. REVIEW OF SYSTEMS: Twelve point review of systems was reviewed with the patient, otherwise negative unless stated in the HPI. PHYSICAL EXAMINATION: GENERAL: The patient is an alert male, in no acute distress. VITAL SIGNS: Temperature is 36.4. Heart rate 104, respirations 20, blood pressure is 100/59, oxygen 97% on 2 liters. HEENT: PERRLA. Sclerae are nonicteric. Oral mucosa is pink and moist. NECK: Supple, no JVD noted. CARDIAC: Normal S1, S2. No murmurs, rubs or gallops. RESPIRATORY: He does have crackles throughout on the right, is fairly clear on the left. He does seem to have some labored breathing, although he normally is not able to speak in full sentences because of his multiple sclerosis contributing to general weakness causing a weak voice. ABDOMEN: Soft, nontender, nondistended with positive bowel sounds. VASCULAR: 2-3+ bilateral lower extremity edema, pedal pulses are 2+. NEUROLOGIC: The patient is alert and oriented x 3. He will follow commands. He does have generalized weakness including a weak voice. SKIN: Pale, but no rashes or lesions. LABORATORY AND DIAGNOSTICS: Blood work done yesterday showed a WBC of 6.8, hemoglobin 12.1, platelets 198. Sodium 137, potassium 5.6, BUN 34, creatinine 1.2, glucose is 290. INR 2.9. BNP is 735. Procalcitonin was 0.5. ABG, pH of 7.43, pCO2 of 35.2, pO2 of 96.7 and bicarbonate is 23.1. Lactate is 2.02. CT of the chest showed moderate bilateral pleural effusions with infiltrates and atelectasis changes, and there is patchy infiltrate in the right middle lobe which is with milder pulmonary infiltrates in the upper lobes bilaterally. ASSESSMENT AND PLAN: 1. Acute on chronic systolic heart failure. The patient was given a dose of IV Lasix and has been diuresing well and has some improvement in his respiratory status. We will continue with a few more doses of IV Lasix. Cardiology has been consulted. He does have a LifeVest in place. Continue with Coreg and losartan per Cardiology. 2. Recent non-ST elevation myocardial infarction. The patient is denying any chest pain. Continue aspirin daily. He was not a surgical candidate for coronary artery bypass graft. 3. Acute on chronic respiratory failure. ABGs were okay. Pulmonary has been following the patient, and at one point, there was concern for possible development of a cryptogenic pneumonia. Chest CT seems more like a fluid than [facility] [address] [place] [address] HISTORY AND PHYSICAL Name: BRIANA MYERS Room #: 217-P [facility] IN M.R.#: [id number] Admission: 09/12/17 Attend Phys: Sharonda Martins Discharge: 09/16/17 Date of : 51 Report #: [id number] pneumonia. His white blood cell count is normal, and he is afebrile. We will continue with the oral antibiotics that he was on it at rehab and continue with IV steroids per Pulmonary and breathing treatments, and Pulmonary is consulted. 4. Diabetes. Recent hemoglobin A1c was 6.3. Blood sugars have been managed by Dr. Michel with Endocrinology who will be consulted as well. His blood sugars have been running high since switching to Solu-Medrol. 5. Apical cardiac thrombus. INR is therapeutic at 2.9. Continue Coumadin daily and follow INR, labs daily. 6. Multiple sclerosis. The patient does have a general debility due to this. He really does not want to go to any sort of long-term care and his goal is to get back home where he had been living alone. He has been wheelchair bound for 30 years. Continue with physical therapy. 7. Deep venous thrombosis prophylaxis. Continue with Coumadin and place sequential compression devices. We will continue to follow the patient closely throughout the hospitalization and make changes based on clinical status. <ELECTRONICALLY SIGNED> By: LATANYA Limon 09/21/17 2249 0743 0829 LATANYA Limon /nt
[2017-09-13 04:02] VITALS: BP 92/61
[2017-09-13 04:48] LABS: PROTIME 59.6 Seconds (9.3-11.4)
[2017-09-13 05:02] LABS: CREATININE 1.4 mg/dL (0.7-1.3); POTASSIUM 4.6 mmol/L (3.5-5.1); TOTAL BILIRUBIN 0.4 mg/dL (<0.1-1.0); TOTAL PROTEIN 5.2 g/dL (6.4-8.2)
[2017-09-13 05:25] LABS: HEMATOCRIT 35.4 % (42.0-52.0); HEMOGLOBIN 11.7 gm/dL (14.0-18.0); MCH 31.7 pg (26.0-34.0); MCHC 33.1 g/dL (28.0-37.0); MCV 95.8 fL (80.0-100.0); RBC 3.7 mil/uL (4.50-6.00); RDW 16.6 % (10.5-14.5); WBC 8.8 thou/uL (4.0-11.0)
[2017-09-13 08:10] VITALS: BP 90/57
[2017-09-13 11:25] VITALS: BP 85/54
[2017-09-13 13:25] VITALS: BP 99/62
[2017-09-13 16:25] VITALS: BP 91/58
[2017-09-13 19:41] VITALS: BP 93/59
[2017-09-14 03:20] VITALS: BP 92/61
[2017-09-14 03:58] LABS: PROTIME 107.4 Seconds (9.3-11.4)
[2017-09-14 04:08] LABS: INR 10.9
[2017-09-14 04:16] LABS: CREATININE 1.4 mg/dL (0.7-1.3); MAGNESIUM 2.1 mg/dL (1.8-2.4); PHOSPHORUS 3.5 mg/dL (2.5-4.9); POTASSIUM 3.9 mmol/L (3.5-5.1)
[2017-09-14 04:42] LABS: HEMATOCRIT 33.4 % (42.0-52.0); HEMOGLOBIN 11.1 gm/dL (14.0-18.0); MCH 31.4 pg (26.0-34.0); MCHC 33.2 g/dL (28.0-37.0); MCV 94.7 fL (80.0-100.0); RBC 3.52 mil/uL (4.50-6.00); RDW 16.2 % (10.5-14.5)
[2017-09-14 07:23] VITALS: BP 80/49
[2017-09-14 11:12] VITALS: BP 74/46
[2017-09-14 15:26] VITALS: BP 84/46
[2017-09-14 19:55] VITALS: BP 85/53
[2017-09-15 03:52] LABS: HEMATOCRIT 32.1 % (42.0-52.0); MCHC 34.2 g/dL (28.0-37.0); MCV 93.5 fL (80.0-100.0); RBC 3.43 mil/uL (4.50-6.00); WBC 12.1 thou/uL (4.0-11.0)
[2017-09-15 03:54] LABS: PROTIME 17.6 Seconds (9.3-11.4)
[2017-09-15 03:58] LABS: INR 1.7
[2017-09-15 04:00] LABS: ALBUMIN 1.9 g/dL (3.4-5.0); CREATININE 1.2 mg/dL (0.7-1.3); POTASSIUM 3.8 mmol/L (3.5-5.1); TOTAL BILIRUBIN 0.4 mg/dL (<0.1-1.0); TOTAL PROTEIN 4.7 g/dL (6.4-8.2)
[2017-09-15 04:30] VITALS: BP 90/57
[2017-09-15 08:30] VITALS: BP 99/63
[2017-09-15 11:30] VITALS: BP 96/56
[2017-09-15 15:40] VITALS: BP 95/51
[2017-09-15 19:52] VITALS: BP 91/55
[2017-09-16 04:07] LABS: INR 1.4; PROTIME 14.2 Seconds (9.3-11.4)
[2017-09-16 04:20] LABS: CALCIUM 7.7 mg/dL (8.5-10.1); CREATININE 1.3 mg/dL (0.7-1.3); POTASSIUM 3.3 mmol/L (3.5-5.1)
[2017-09-16 05:18] VITALS: BP 94/60
[2017-09-16 07:50] VITALS: BP 100/67
[2017-09-16] MEDS ORDERED: ENOXAPARIN80 MG/0.1 SUBQ (09:57)
[2017-09-16] MEDS ORDERED: DUONEB 2.5-0.5 M3 ML INH (09:57)
[2017-09-16] MEDS ORDERED: COUMADIN 2 MG TA2 M1 PO (09:57)
[2017-09-16] MEDS ORDERED: DEMADEX 2020 MG/1 TA PO (09:57)
[2017-09-16] MEDS ORDERED: NOVOLOG100 UNIT/1 SUBQ (09:58)
[2017-09-16] MEDS ORDERED: SOLU-MEDRO40 MG/1 M2 IV PUSH (09:58)
[2017-09-16] MEDS ORDERED: ACIDOPHILUS1 EAC4 PO (09:58)
[2017-09-16 11:25] VITALS: BP 94/56
== END 2017-09-16 14:33 | DRG 280 ==
LOC: 2N 23:43
PROVIDERS: Hospitalist; Internal Medicine Pulmonary Disease; Nurse Practitioner Acute Care; Nurse Practitioner Gerontology
DX: I50.23 Acute on chronic systolic (congestive) heart failure (principal); J96.20 Acute and chronic respiratory failure, unspecified whether with hypoxia or hypercapnia; I21.4 Non-ST elevation (NSTEMI) myocardial infarction; I25.10 Atherosclerotic heart disease of native coronary artery without angina pectoris; I25.5 Ischemic cardiomyopathy; J44.9 Chronic obstructive pulmonary disease, unspecified; K21.9 Gastro-esophageal reflux disease without esophagitis; E11.9 Type 2 diabetes mellitus without complications; G35 Multiple sclerosis; E78.00 Pure hypercholesterolemia, unspecified; I95.9 Hypotension, unspecified; I11.0 Hypertensive heart disease with heart failure; Z60.2 Problems related to living alone; Z88.8 Allergy status to other drugs, medicaments and biological substances; Z79.899 Other long term (current) drug therapy; Z79.4 Long term (current) use of insulin
CPT/HCPCS: 10081

== ENCOUNTER 2017-11-30 09:13 | Observation (INO) | payer BC ==
[~2017-11-30] VITALS: Ht 182.9 cm; Wt 68.9 kg
--- NOTE | ~2017-11-30 | CATHLAB ---
[facility] [address] [place] [address] INVASIVE PROCEDURE REPORT Name: BRIANA MYERSN Room #: 219-P [facility]#: [id number] Admission: 11/30/17 Attend Phys: Bobo Daugherty Discharge: 12/01/17 Date of : 51 Date of Service: 12/16/17 0936 Report #: [id number] THIS REPORT FOR: //name// ADDENDUM APPROVED REPORT Study performed: 11/30/2017 08:19:30 Patient Status: Out-Patient Room #: Event Personnel: Bobo Turner MD, Indications: ischemic cardiomyopathy with persistent decreased ejection fraction in spite of optimal he tolerated medical regimen The patient is a 62 year-old male with a history of Cardiomyopathy (Ischemic). Patient Info Last EF%: 25 Date: 11/22/17 NYHA Heart Class: III CHF: Chronic Systolic Antiplatelet Therapy: asa Intraoperative Conscious Sedation Versed 4.0 mg Conscious sedation with Versed and Demerol doses as noted in the chart Implanted Devices: [employer] generator model CD 23 5740 Q: Serial number [id number] [employer] right atrial lead model 2087 TC/52; serial number [id number] [employer] right ventricular lead model 01/02/20 2Q/58; serial number B and [id number] Procedure After explaining the risks, benefits, and alternative options, informed consent was obtained from the patient. The patient was brought to the cardiac catheterization lab and the left chest and shoulder were prepped and draped in the usual fashion. During this case, Fluoroscopy and no contrast were used for imaging. Following achievement of sedation the left chest was instilled percent lidocaine. The incision was then carried forth with a standard blade. Utilizing both blunt and sharp dissection a [facility] [place] [address] [place] [address] INVASIVE PROCEDURE REPORT Name: BRIANA MYERS Room #: 219-P [facility] M.R.#: [id number] Admission: 11/30/17 Attend Phys: Bobo Daugherty Discharge: 12/01/17 Date of : 51 Date of Service: 12/16/17 0936 Report #: [id number] was developed and antibiotics so 4 x 4 was placed. Utilizing a modified Seldinger technique and a micropuncture needle 2 separate sticks were utilized to insert 7 Sami bloodless peel-away sheaths. Following insertion of the sheath a retention suture of 20 nonabsorbable suture was then placed along the pectoralis muscle fascia. The atrial and ventricular leads were then advanced and positioned under fluoroscopic. Katharina. The ventricular lead was placed in the interventricular septum with capture and sensing threshold obtained and noted in the report. The atrial lead was then positioned in the right atrial appendage with excellent movement. Capture and sensing threshold also identified and verified. These were sewn in place and the second's retention suture each lead was then placed with the 20 nonabsorbable suture. The device leads chest and pocket was irrigated with antibiotic solution. Device was placed in the pocket and closure ensued the subcutaneous tissue was then closed with 2 layers of running locking nonabsorbable suture. The skin was then closed with a 3-0 Vicryl subcuticular stitch. Skin was well opposed and Steri-Strips are placed. 4 x 4 OpSite was noted. Complications The patient tolerated the procedure well and there were no complications associated with the procedure. Findings Specimens Removed: N/A Estimated Blood Loss: 10 mL Conclusion 1. Successful implantation of a dual-chamber ICD under fluoroscopic visualization with conscious sedation supervision <ELECTRONICALLY SIGNED> By: Bobo Turner MD 12/16/17 0936 0936 0936 Bobo Turner MD /INF
--- NOTE | ~2017-11-30 | D ---
[facility] [place] [address] DISCHARGE SUMMARY Name: BRIANA MYERS Room #: 219-P [facility] M.R.#: [id number] Admission: 11/30/17 Attend Phys: Bobo Turner Discharge: 12/01/17 Date of : 51 Report #: [id number] THIS REPORT FOR: //name// CC: Bobo Redmond Saji Sands DATE OF SERVICE: 12/01/2017 ADMITTING DIAGNOSES: 1. Ischemic cardiomyopathy. 2. Heart failure with reduced ejection fraction at optimize tolerable medical regimen. PROCEDURE PERFORMED: 1. Implantation of dual chamber ICD for primary prevention. 2. Supervision of conscious sedation. DISCHARGE MEDICATIONS: Home meds. FOLLOWUP: 1. Dr. Turner's office for wound check in 7 days. 2. Follow up with Dr. Turner in 4 weeks. BRIEF CLINICAL HISTORY: See history and physical in chart. DISCHARGE DIET: Home diet with salt restriction, heart healthy, diabetic. HOSPITAL COURSE: The patient was admitted to the hospital and underwent uncomplicated dual chamber [employer] ICD implantation. This was placed with 2-screw and leads, capture and sensing thresholds were verified. The morning ECG failed to demonstrate any significant pneumothorax, and interrogation of device was excellent. In view of this, the patient was allowed to ambulate with the restriction of the shoulder immobilizer for a total of 48 hours and then at p.m. bedtime for 4 weeks. He is being discharged in improved and stable condition to follow up with previously stated instructions and medications. <ELECTRONICALLY SIGNED> By: Bobo Turner MD 12/02/17 1137 1236 1311 Bobo Turner MD /nt
[~2017-11-30 09:13] MED LIST changes: +ACIDOPHILUS1 EAC4 PO; +COUMADIN 2 MG TA2 M1 PO; +DEMADEX 2020 MG/1 TA PO; +DUONEB 2.5-0.5 M3 ML INH; +ENOXAPARIN80 MG/0.1 SUBQ; +SOLU-MEDRO40 MG/1 M2 IV PUSH
[2017-11-30 09:38] VITALS: BP 99/66
[2017-11-30 09:46] LABS: HEMATOCRIT 32.6 % (42.0-52.0); HEMOGLOBIN 10.7 gm/dL (14.0-18.0); MCH 30.6 pg (26.0-34.0); MCV 92.9 fL (80.0-100.0); RBC 3.51 mil/uL (4.50-6.00); WBC 12.9 thou/uL (4.0-11.0)
[2017-11-30 09:57] LABS: CALCIUM 9.3 mg/dL (8.5-10.1); CREATININE 1.2 mg/dL (0.7-1.3); POTASSIUM 4.2 mmol/L (3.5-5.1)
[2017-11-30] MEDS ORDERED: ASPIR 8181 MG PO (09:58)
[2017-11-30] MEDS ORDERED: LIPITOR 20 MG T20 M1 PO (09:59)
[2017-11-30 10:01] LABS: APTT 22.5 Seconds (24.5-32.8); INR 1.2; PROTIME 12.7 Seconds (9.3-11.4)
[2017-11-30] MEDS ORDERED: CARVEDILOL3.125 MG PO (10:01)
[2017-11-30] MEDS ORDERED: LOSARTAN POTASS25 MG PO (10:03)
[2017-11-30] MEDS ORDERED: DEMADEX20 MG PO (10:05)
[2017-11-30] MEDS ORDERED: PREDNISONE 10 M10 MG PO (10:06)
[2017-11-30] MEDS ORDERED: CARDIOTAB PO (10:07)
[2017-11-30] MEDS ORDERED: CURCUMIN PO (10:07)
[2017-11-30] MEDS ORDERED: CO Q-10100 MG PO (10:08)
[2017-11-30] MEDS ORDERED: ALDACTONE25 MG PO (10:08)
[2017-11-30] MEDS ORDERED: PROAIR RESPICL90 MCG INH (10:09)
[2017-11-30] MEDS ORDERED: CAPZASIN HP TOP (10:10)
[2017-11-30] MEDS ORDERED: BENADRYL25 MG PO (10:10)
[2017-11-30] MEDS ORDERED: ATROVENT INH (10:12)
[2017-11-30] MEDS ORDERED: HUMALOG KW100 UNIT/1 SUBQ (10:14)
[2017-11-30] MEDS ORDERED: LEVEMIR SUBQ (10:15)
[2017-11-30] MEDS ORDERED: TRAMADOL 50 MG50 MG PO (10:15)
[2017-11-30 15:02] VITALS: BP 105/66
[2017-11-30 19:55] VITALS: BP 96/65
[2017-11-30 22:58] VITALS: BP 102/60
[2017-12-01 04:09] VITALS: BP 94/58
[2017-12-01 08:23] VITALS: BP 90/59
[2017-12-01 10:52] VITALS: BP 85/52
[2017-12-01 12:50] VITALS: BP 85/52
[2017-12-01 12:55] VITALS: BP 85/52
== END 2017-12-01 13:30 | disposition home or self-care (01) ==
LOC: CATH 09:13 → 2N 14:04 → CATH 16:00 → ENTRNSPT 12-01 13:16 → EDTRNSPTSTS 12-01 13:20 → 2N 12-01 13:30
PROVIDERS: Internal Medicine
DX: I25.5 Ischemic cardiomyopathy (principal); I11.0 Hypertensive heart disease with heart failure; I50.22 Chronic systolic (congestive) heart failure; E11.9 Type 2 diabetes mellitus without complications; G35 Multiple sclerosis; J47.9 Bronchiectasis, uncomplicated; Z98.890 Other specified postprocedural states

== ENCOUNTER 2017-12-29 15:27 | Inpatient (IN) | payer BC, OTHER ==
[~2017-12-29] VITALS: Ht 175.3 cm; Wt 79.4 kg
--- NOTE | ~2017-12-29 | EKG ---
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 : 1955 Requested By: Jessica Simental Order Number: [id number] MD: Lavelle Bernabe Measurements Intervals [place] Rate: 99 P: 59 [place]: 169 QRS: 103 QRSD: 102 T: 206 QT: 348 QTc: 447 Interpretive Statements Sinus rhythm Low voltage, extremity leads Nonspecific repol abnormality, lateral leads Compared to ECG 09/12/2017 22:53:37 Sinus tachycardia no longer present Ventricular premature complex(es) no longer present Electronically Signed On 12-30-2017 7:34:34 CDT by Lavelle Bernabe [email or web address] <ELECTRONICALLY SIGNED> By: Lavelle Bernabe MD, [facility] 12/30/17 0734 1556 1556 Lavelle Bernabe MD, [facility] /EPI
[~2017-12-29 15:27] MED LIST changes: +ALDACTONE25 MG PO; +ATROVENT INH; +CAPZASIN HP TOP; +CARDIOTAB PO; +CO Q-10100 MG PO; +CURCUMIN PO; +DEMADEX20 MG PO; +HUMALOG KW100 UNIT/1 SUBQ; +LIPITOR 20 MG T20 M1 PO; +LOSARTAN POTASS25 MG PO; +PROAIR RESPICL90 MCG INH; +TRAMADOL 50 MG50 MG PO
[2017-12-29 16:16] LABS: ABSOLUTE NEUTROPHILS 9.2 thou/uL (1.4-8.2); BASOPHILS 0.4 % (0.0-2.0); EOSINOPHILS 0.2 % (0.0-3.0); HEMATOCRIT 29.7 % (42.0-52.0); HEMOGLOBIN 10.2 gm/dL (14.0-18.0); LYMPHOCYTES 4.1 % (24.0-44.0); MCH 30.2 pg (26.0-34.0); MCHC 34.3 g/dL (28.0-37.0); PLATELET COUNT 321 thou/uL (150-400); POLYS 90.3 % (36.0-66.0); RBC 3.37 mil/uL (4.50-6.00); RDW 16.5 % (10.5-14.5); WBC 10.2 thou/uL (4.0-11.0)
[2017-12-29 16:21] VITALS: BP 107/73
[2017-12-29 16:26] LABS: CALCIUM 8.8 mg/dL (8.5-10.1); CREATININE 1.1 mg/dL (0.7-1.3); POTASSIUM 4.8 mmol/L (3.5-5.1)
[2017-12-29 16:29] LABS: INR 1.4; PROTIME 13.8 Seconds (9.3-11.4)
[2017-12-29 16:35] LABS: ALBUMIN 2.3 g/dL (3.4-5.0); TOTAL BILIRUBIN 0.4 mg/dL (<0.1-1.0); TROPONIN-I 0.1 ng/mL (<0.06)
[2017-12-29 17:23] LABS: BE(vivo) 0.2 mmol/L (-2 to +3); HCO3 23.4 mmol/L (22.0-26.0); PO2 80.9 mmHg (80.0-100.0); pH 7.468 (7.360-7.450); sO2 96.6 % (92.0-98.0)
[2017-12-29 17:34] VITALS: BP 116/78
[2017-12-29 17:46] LABS: ALBUMIN 2.3 g/dL (3.4-5.0); TOTAL PROTEIN 5.5 g/dL (6.4-8.2)
[2017-12-29 17:48] VITALS: BP 116/78
[2017-12-29 18:16] LABS: TSH 0.544 uIU/mL (0.358-3.740)
[2017-12-29 18:35] VITALS: BP 97/64
[2017-12-29 19:24] VITALS: BP 116/83
[2017-12-29 23:50] VITALS: BP 82/67
[2017-12-30] VITALS (9 sets, daily range): BP systolic 89–103; BP diastolic 56–72
[2017-12-30 05:30] LABS: HEMATOCRIT 31.4 % (42.0-52.0); HEMOGLOBIN 10.7 gm/dL (14.0-18.0); MCHC 34.2 g/dL (28.0-37.0); MCV 87.8 fL (80.0-100.0); RBC 3.58 mil/uL (4.50-6.00); RDW 16.4 % (10.5-14.5)
[2017-12-30 05:46] LABS: CALCIUM 8.6 mg/dL (8.5-10.1); CREATININE 1.2 mg/dL (0.7-1.3); MAGNESIUM 2.3 mg/dL (1.8-2.4); POTASSIUM 4.6 mmol/L (3.5-5.1)
[2017-12-31 03:36] VITALS: BP 98/64
[2017-12-31 06:04] LABS: HEMATOCRIT 30.7 % (42.0-52.0); HEMOGLOBIN 10.4 gm/dL (14.0-18.0); MCH 29.5 pg (26.0-34.0); MCHC 33.7 g/dL (28.0-37.0); MCV 87.6 fL (80.0-100.0); RBC 3.51 mil/uL (4.50-6.00); RDW 16.6 % (10.5-14.5); WBC 14.8 thou/uL (4.0-11.0)
[2017-12-31 06:11] LABS: CALCIUM 8.5 mg/dL (8.5-10.1); CREATININE 1.7 mg/dL (0.7-1.3); MAGNESIUM 2.5 mg/dL (1.8-2.4)
[2017-12-31 07:45] VITALS: BP 99/69
[2017-12-31 11:41] VITALS: BP 100/73
[2017-12-31 15:19] LABS: URINE BILIRUBIN NEGATIVE (Negative); URINE BLOOD NEGATIVE (Negative); URINE CLARITY CLEAR; URINE COLOR YELLOW; URINE GLUCOSE-RANDOM* NEGATIVE (Negative); URINE KETONES NEGATIVE (Negative); URINE LEUKOCYTES-REFLEX NEGATIVE (Negative); URINE NITRITE-REFLEX NEGATIVE (Negative); URINE PROTEIN (DIPSTICK) NEGATIVE (Negative); URINE SPECIFIC GRAVITY 1.015 (1.005-1.035); URINE UROBILINOGEN 0.2 E.U./dl (0.2-1.0)
[2017-12-31 16:00] VITALS: BP 100/72
[2017-12-31 19:15] VITALS: BP 94/67
[2018-01-01 01:40] VITALS: BP 5/64
[2018-01-01 03:17] VITALS: BP 85/53
[2018-01-01 05:53] LABS: HEMATOCRIT 30.3 % (42.0-52.0); HEMOGLOBIN 10.2 gm/dL (14.0-18.0); MCH 29.5 pg (26.0-34.0); MCHC 33.8 g/dL (28.0-37.0); MCV 87.3 fL (80.0-100.0); RBC 3.47 mil/uL (4.50-6.00); RDW 16.3 % (10.5-14.5); WBC 12.8 thou/uL (4.0-11.0)
[2018-01-01 06:08] LABS: CALCIUM 8.1 mg/dL (8.5-10.1); CREATININE 1.3 mg/dL (0.7-1.3); MAGNESIUM 2.3 mg/dL (1.8-2.4); POTASSIUM 4.1 mmol/L (3.5-5.1)
[2018-01-01 08:00] VITALS: BP 108/67
[2018-01-01 12:18] VITALS: BP 111/72
[2018-01-01 16:12] VITALS: BP 119/81
[2018-01-01 19:02] VITALS: BP 83/55
[2018-01-02 00:11] VITALS: BP 94/56
[2018-01-02 04:06] LABS: CREATININE 1.1 mg/dL (0.7-1.3); MAGNESIUM 2.2 mg/dL (1.8-2.4); POTASSIUM 3.7 mmol/L (3.5-5.1)
[2018-01-02 04:07] LABS: HEMATOCRIT 30.4 % (42.0-52.0); HEMOGLOBIN 10.8 gm/dL (14.0-18.0); MCH 31.1 pg (26.0-34.0); MCHC 35.7 g/dL (28.0-37.0); MCV 87.1 fL (80.0-100.0); RBC 3.49 mil/uL (4.50-6.00); RDW 16.4 % (10.5-14.5); WBC 10.5 thou/uL (4.0-11.0)
[2018-01-02 04:30] VITALS: BP 105/73
[2018-01-02 07:06] VITALS: BP 101/70
[2018-01-02 11:47] VITALS: BP 94/58
[2018-01-02 15:48] VITALS: BP 98/61
[2018-01-02 20:15] VITALS: BP 98/62
[2018-01-03 04:06] VITALS: BP 98/60
[2018-01-03 08:19] VITALS: BP 106/71
[2018-01-03 10:07] LABS: HEMATOCRIT 33.9 % (42.0-52.0); HEMOGLOBIN 11.5 gm/dL (14.0-18.0); MCH 29.4 pg (26.0-34.0); MCHC 33.8 g/dL (28.0-37.0); MCV 87.2 fL (80.0-100.0); RBC 3.89 mil/uL (4.50-6.00); RDW 16.5 % (10.5-14.5); WBC 10.6 thou/uL (4.0-11.0)
[2018-01-03 10:20] LABS: ALBUMIN 1.9 g/dL (3.4-5.0); CALCIUM 8.2 mg/dL (8.5-10.1); MAGNESIUM 2.1 mg/dL (1.8-2.4); POTASSIUM 3.7 mmol/L (3.5-5.1); TOTAL BILIRUBIN 0.3 mg/dL (<0.1-1.0); TOTAL PROTEIN 5.2 g/dL (6.4-8.2)
[2018-01-03 10:51] VITALS: BP 95/32
[2018-01-03 15:13] VITALS: BP 105/67
[2018-01-03 20:05] VITALS: BP 96/56
[2018-01-04 04:45] VITALS: BP 93/57
[2018-01-04 07:40] VITALS: BP 106/70
[2018-01-04 11:27] VITALS: BP 96/59
[2018-01-04 16:25] VITALS: BP 100/67
[2018-01-04 19:55] VITALS: BP 94/59
[2018-01-05 04:50] VITALS: BP 95/60
[2018-01-05 07:00] VITALS: BP 99/58
[2018-01-05] MEDS ORDERED: CEFUROXIME500 MG PO (08:20)
[2018-01-05] MEDS ORDERED: MIRALAX17 GM PO (08:21)
[2018-01-05] MEDS ORDERED: KLOR-CON M2020 MEQ PO (08:41)
[2018-01-05 08:42] VITALS: BP 99/58
[2018-01-05 11:05] VITALS: BP 88/52
[2018-01-05 12:32] VITALS: BP 99/58
[2018-01-05 14:01] VITALS: BP 99/58
== END 2018-01-05 16:10 | disposition home or self-care (01) | DRG 871 ==
LOC: ER 15:27 → 2N 16:59 → EROBS 16:59 → 2N 17:50
PROVIDERS: Internal Medicine; Physician Assistant
DX: A41.9 Sepsis, unspecified organism (principal); J96.01 Acute respiratory failure with hypoxia; J18.9 Pneumonia, unspecified organism; I50.23 Acute on chronic systolic (congestive) heart failure; E43 Unspecified severe protein-calorie malnutrition; N17.9 Acute kidney failure, unspecified; I11.0 Hypertensive heart disease with heart failure; E78.5 Hyperlipidemia, unspecified; J44.9 Chronic obstructive pulmonary disease, unspecified; I25.5 Ischemic cardiomyopathy; I25.10 Atherosclerotic heart disease of native coronary artery without angina pectoris; L89.609 Pressure ulcer of unspecified heel, unspecified stage; Y95 Nosocomial condition; E10.9 Type 1 diabetes mellitus without complications; G35 Multiple sclerosis; I25.2 Old myocardial infarction; Z95.810 Presence of automatic (implantable) cardiac defibrillator; Z86.718 Personal history of other venous thrombosis and embolism; Z68.25 Body mass index [BMI] 25.0-25.9, adult; Z87.81 Personal history of (healed) traumatic fracture; Z79.4 Long term (current) use of insulin; Z79.82 Long term (current) use of aspirin; Z79.899 Other long term (current) drug therapy; Z88.2 Allergy status to sulfonamides; Z88.8 Allergy status to other drugs, medicaments and biological substances
CPT/HCPCS: 10194

== ENCOUNTER 2018-01-07 13:24 | Inpatient (IN) | payer OTHER ==
[~2018-01-07] VITALS: Ht 182.9 cm; Wt 79.3 kg
--- NOTE | ~2018-01-07 | EKG ---
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: Jonna HICKEY : 1955 Requested By: Deedee Tai Order Number: [id number] MD: Lavelle Bernabe Measurements Intervals [place] Rate: 105 P: 78 [place]: 164 QRS: 115 QRSD: 95 T: 225 QT: 377 QTc: 499 Interpretive Statements Sinus tachycardia Low voltage with right axis deviation Abnormal R-wave progression, late transition Nonspecific repol abnormality, diffuse leads Baseline wander in lead(s) V2 Compared to ECG 12/29/2017 15:56:28 No significant change was found Electronically Signed On 01-08-2018 14:07:14 CDT by Lavelle Bernabe [email or web address] <ELECTRONICALLY SIGNED> By: Lavelle Bernabe MD, [facility] 01/08/18 1407 1417 1417 Lavelle Bernabe MD, [facility] /EPI
[~2018-01-07 13:24] MED LIST changes: +CEFUROXIME500 MG PO; +KLOR-CON M2020 MEQ PO; +MIRALAX17 GM PO
[2018-01-07 14:12] VITALS: BP 99/66
[2018-01-07 14:49] LABS: ABSOLUTE NEUTROPHILS 11.3 thou/uL (1.4-8.2); BASOPHILS 0.3 % (0.0-2.0); EOSINOPHILS 0.1 % (0.0-3.0); HEMATOCRIT 32.5 % (42.0-52.0); HEMOGLOBIN 10.5 gm/dL (14.0-18.0); LYMPHOCYTES 2.5 % (24.0-44.0); MCH 28.8 pg (26.0-34.0); MCHC 32.3 g/dL (28.0-37.0); MCV 89.2 fL (80.0-100.0); MONOCYTES 3.7 % (1.0-8.0); PLATELET COUNT 317 thou/uL (150-400); POLYS 93.4 % (36.0-66.0); RBC 3.65 mil/uL (4.50-6.00); RDW 16.8 % (10.5-14.5); WBC 12.1 thou/uL (4.0-11.0)
[2018-01-07 14:54] LABS: CALCIUM 8.5 mg/dL (8.5-10.1); CREATININE 1.1 mg/dL (0.7-1.3); POTASSIUM 3.8 mmol/L (3.5-5.1)
[2018-01-07 15:05] LABS: TROPONIN-I 0.65 ng/mL (<0.06)
[2018-01-07 15:14] LABS: BE(vivo) 8.5 mmol/L (-2 to +3); HCO3 32.3 mmol/L (22.0-26.0); PCO2 41.3 mmHg (35.0-45.0); PO2 90.5 mmHg (80.0-100.0); pH 7.511 (7.360-7.450); sO2 97.5 % (92.0-98.0)
[2018-01-07 15:34] VITALS: BP 104/58
[2018-01-07 15:59] VITALS: BP 103/70
[2018-01-07 16:35] VITALS: BP 105/71
[2018-01-07 19:45] VITALS: BP 89/61
[2018-01-08 03:32] LABS: HEMATOCRIT 31.7 % (42.0-52.0); HEMOGLOBIN 10.5 gm/dL (14.0-18.0); MCH 29.7 pg (26.0-34.0); MCV 89.8 fL (80.0-100.0); RBC 3.52 mil/uL (4.50-6.00); RDW 16.5 % (10.5-14.5); WBC 10.1 thou/uL (4.0-11.0)
[2018-01-08 03:40] LABS: CALCIUM 8.3 mg/dL (8.5-10.1); CREATININE 1.3 mg/dL (0.7-1.3); POTASSIUM 4.1 mmol/L (3.5-5.1)
[2018-01-08 05:04] VITALS: BP 114/73
[2018-01-08 07:37] VITALS: BP 106/70
[2018-01-08 11:15] VITALS: BP 109/72
[2018-01-08 15:45] VITALS: BP 98/69
[2018-01-08 19:42] VITALS: BP 97/68
[2018-01-09 04:56] VITALS: BP 101/68
[2018-01-09 05:42] LABS: ABSOLUTE NEUTROPHILS 7.2 thou/uL (1.4-8.2); EOSINOPHILS 0.5 % (0.0-3.0); HEMATOCRIT 30.6 % (42.0-52.0); HEMOGLOBIN 10.2 gm/dL (14.0-18.0); LYMPHOCYTES 9.1 % (24.0-44.0); MCH 29.5 pg (26.0-34.0); MCHC 33.2 g/dL (28.0-37.0); MCV 88.9 fL (80.0-100.0); MONOCYTES 5.2 % (1.0-8.0); PLATELET COUNT 276 thou/uL (150-400); POLYS 84.2 % (36.0-66.0); RBC 3.44 mil/uL (4.50-6.00); RDW 16.5 % (10.5-14.5); WBC 8.6 thou/uL (4.0-11.0)
[2018-01-09 05:55] LABS: CALCIUM 8.3 mg/dL (8.5-10.1); CREATININE 1.3 mg/dL (0.7-1.3); POTASSIUM 3.7 mmol/L (3.5-5.1)
[2018-01-09 07:10] VITALS: BP 103/68
[2018-01-09 11:15] VITALS: BP 95/61
[2018-01-09 16:35] VITALS: BP 91/61
[2018-01-09 19:58] VITALS: BP 95/69
[2018-01-10 04:29] LABS: ABSOLUTE NEUTROPHILS 8.5 thou/uL (1.4-8.2); BASOPHILS 0.3 % (0.0-2.0); CALCIUM 8.4 mg/dL (8.5-10.1); CREATININE 1.3 mg/dL (0.7-1.3); HEMATOCRIT 29.8 % (42.0-52.0); HEMOGLOBIN 9.9 gm/dL (14.0-18.0); LYMPHOCYTES 7.4 % (24.0-44.0); MCH 29.6 pg (26.0-34.0); MCHC 33.2 g/dL (28.0-37.0); MCV 89.1 fL (80.0-100.0); MONOCYTES 4.1 % (1.0-8.0); PLATELET COUNT 269 thou/uL (150-400); POLYS 88.2 % (36.0-66.0); RBC 3.35 mil/uL (4.50-6.00); RDW 16.6 % (10.5-14.5); WBC 9.7 thou/uL (4.0-11.0)
[2018-01-10 04:50] VITALS: BP 99/68
[2018-01-10 07:15] VITALS: BP 90/56
[2018-01-10 11:20] VITALS: BP 110/67
[2018-01-10 15:10] VITALS: BP 106/72
[2018-01-10 20:03] VITALS: BP 107/75
[2018-01-11 03:26] VITALS: BP 95/64
[2018-01-11 03:59] LABS: ABSOLUTE NEUTROPHILS 7.9 thou/uL (1.4-8.2); BASOPHILS 0.3 % (0.0-2.0); EOSINOPHILS 0.1 % (0.0-3.0); HEMATOCRIT 29.7 % (42.0-52.0); HEMOGLOBIN 9.9 gm/dL (14.0-18.0); LYMPHOCYTES 9.1 % (24.0-44.0); MCH 29.2 pg (26.0-34.0); MCHC 33.2 g/dL (28.0-37.0); MCV 87.9 fL (80.0-100.0); MONOCYTES 4.2 % (1.0-8.0); PLATELET COUNT 261 thou/uL (150-400); POLYS 86.3 % (36.0-66.0); RBC 3.38 mil/uL (4.50-6.00); RDW 16.5 % (10.5-14.5); WBC 9.1 thou/uL (4.0-11.0)
[2018-01-11 04:11] LABS: CALCIUM 8.4 mg/dL (8.5-10.1); CREATININE 1.4 mg/dL (0.7-1.3); POTASSIUM 3.6 mmol/L (3.5-5.1)
[2018-01-11 07:13] VITALS: BP 86/54
[2018-01-11 10:51] LABS: BE(vivo) 7.7 mmol/L (-2 to +3); HCO3 31.7 mmol/L (22.0-26.0); PO2 103.3 mmHg (80.0-100.0); pH 7.495 (7.360-7.450); sO2 98.1 % (92.0-98.0)
[2018-01-11 11:44] VITALS: BP 92/52
[2018-01-11 15:18] VITALS: BP 92/60
[2018-01-11 19:09] VITALS: BP 95/65
[2018-01-12 03:45] VITALS: BP 84/55
[2018-01-12 04:47] LABS: ABSOLUTE NEUTROPHILS 10.5 thou/uL (1.4-8.2); BASOPHILS 0.2 % (0.0-2.0); HEMATOCRIT 30.5 % (42.0-52.0); HEMOGLOBIN 10.1 gm/dL (14.0-18.0); LYMPHOCYTES 3.3 % (24.0-44.0); MCH 28.9 pg (26.0-34.0); MCHC 32.9 g/dL (28.0-37.0); MCV 87.8 fL (80.0-100.0); MONOCYTES 1.7 % (1.0-8.0); PLATELET COUNT 238 thou/uL (150-400); POLYS 94.8 % (36.0-66.0); RBC 3.48 mil/uL (4.50-6.00); WBC 11.1 thou/uL (4.0-11.0)
[2018-01-12 04:59] LABS: ALBUMIN 1.9 g/dL (3.4-5.0); CALCIUM 8.1 mg/dL (8.5-10.1); CREATININE 1.5 mg/dL (0.7-1.3); TOTAL BILIRUBIN 0.4 mg/dL (<0.1-1.0); TOTAL PROTEIN 5.3 g/dL (6.4-8.2)
[2018-01-12 06:53] VITALS: BP 91/54
[2018-01-12 15:25] VITALS: BP 92/60
[2018-01-12 19:50] VITALS: BP 94/53
[2018-01-13 04:13] LABS: INR 1.3; PROTIME 13.7 Seconds (9.3-11.4)
[2018-01-13 05:16] VITALS: BP 84/50
[2018-01-13 07:07] VITALS: BP 98/61
[2018-01-13 11:03] VITALS: BP 102/64
[2018-01-13 14:52] LABS: CLARITY SLIGHTLY CLOUDY; COLOR YELLOW; SOURCE RIGHT CHEST; TOTAL VOLUME 60 mL
[2018-01-13 14:53] LABS: SOURCE RIGHT CHEST
[2018-01-13 15:03] LABS: BF NUCLEATED CELLS 84; BF RBC 441
[2018-01-13 15:43] VITALS: BP 101/63
[2018-01-13 16:58] LABS: BF MACROPHAGE 14; BF NEUTROPHILS 58
[2018-01-13 19:37] VITALS: BP 93/62
[2018-01-14 04:10] VITALS: BP 96/50
[2018-01-14 04:30] LABS: ABSOLUTE NEUTROPHILS 14.6 thou/uL (1.4-8.2); HEMATOCRIT 29.9 % (42.0-52.0); HEMOGLOBIN 9.9 gm/dL (14.0-18.0); LYMPHOCYTES 1.6 % (24.0-44.0); MCH 29.2 pg (26.0-34.0); MCHC 32.9 g/dL (28.0-37.0); MCV 88.7 fL (80.0-100.0); MONOCYTES 2.3 % (1.0-8.0); PLATELET COUNT 228 thou/uL (150-400); POLYS 96.1 % (36.0-66.0); RBC 3.37 mil/uL (4.50-6.00); WBC 15.2 thou/uL (4.0-11.0)
[2018-01-14 04:42] LABS: CALCIUM 8.1 mg/dL (8.5-10.1); CREATININE 1.5 mg/dL (0.7-1.3); POTASSIUM 4.2 mmol/L (3.5-5.1)
[2018-01-14 08:14] VITALS: BP 107/75
[2018-01-14] MEDS ORDERED: PREDNISONE 10 M10 MG PO (10:10)
[2018-01-14] MEDS ORDERED: AUGMENTIN 875-1 EACH PO (10:10)
[2018-01-14] MEDS ORDERED: IPRAT-ALBUT 0.5-3 ML INH (10:10)
[2018-01-14] MEDS ORDERED: CORLANOR5 MG PO (10:10)
[2018-01-14] MEDS ORDERED: TRAMADOL 50 MG50 MG PO (10:18)
[2018-01-14 11:46] VITALS: BP 96/59
[2018-01-14 13:13] LABS: BODY FLUID ALBUMIN 0.5 g/dL (()); BODY FLUID AMYLASE 14 U/L (()); BODY FLUID GLUCOSE 295 mg/dL (()); BODY FLUID LDH 71 IU/L (()); BODY FLUID PROTEIN 0.9 g/dL (())
== END 2018-01-14 13:15 | DRG 177 ==
LOC: ER 13:24 → 2N 15:39 → EROBS 15:39 → 2N 16:09
PROVIDERS: Emergency Medicine; Hospitalist; Internal Medicine Pulmonary Disease
PROC: 0W993ZZ Drainage of Right Pleural Cavity, Percutaneous Approach (ICD-10-PCS; principal; 2018-01-13)
DX: J15.6 Pneumonia due to other Gram-negative bacteria (principal); I50.23 Acute on chronic systolic (congestive) heart failure; J96.01 Acute respiratory failure with hypoxia; E43 Unspecified severe protein-calorie malnutrition; G82.20 Paraplegia, unspecified; N17.9 Acute kidney failure, unspecified; J44.1 Chronic obstructive pulmonary disease with (acute) exacerbation; J90 Pleural effusion, not elsewhere classified; Z79.52 Long term (current) use of systemic steroids; E10.9 Type 1 diabetes mellitus without complications; I11.0 Hypertensive heart disease with heart failure; I25.10 Atherosclerotic heart disease of native coronary artery without angina pectoris; J44.9 Chronic obstructive pulmonary disease, unspecified; I25.5 Ischemic cardiomyopathy; E78.5 Hyperlipidemia, unspecified; I95.9 Hypotension, unspecified; Z60.2 Problems related to living alone; G35 Multiple sclerosis; D64.9 Anemia, unspecified; I25.2 Old myocardial infarction; Z88.2 Allergy status to sulfonamides; Z88.8 Allergy status to other drugs, medicaments and biological substances; Z68.23 Body mass index [BMI] 23.0-23.9, adult
CPT/HCPCS: 10081

== ENCOUNTER 2018-03-20 11:31 | Inpatient (IN) | payer OTHER ==
[~2018-03-20] VITALS: Ht 182.9 cm; Wt 93.0 kg
--- NOTE | ~2018-03-20 | HC ---
[facility] [place] [address] CONSULTATION Name: BRIANA MYERS Room #: 418-P [facility] IN M.R.#: [id number] Admission: 03/20/18 Attend Phys: Josh Keller MD Discharge: Date of : 51 Report #: [id number] THIS REPORT FOR: //name// CC: Josh Redmond DATE OF SERVICE: 03/21/2018 CHIEF COMPLAINT: Bilateral lower extremity ulcerations. HISTORY OF PRESENT ILLNESS: This is a 62-year-old male patient who was brought to the Emergency Department with progressive weakness and lower extremity swelling developing blisters to his right leg. He has chronic ulceration to his left great toe and left heel. These have not been improving. He is admitted for further evaluation and treatment. The patient states he has had some abdominal pain. Does note pain in the tip of his left great toe, but otherwise denies pain. PAST MEDICAL HISTORY: Positive for type 1 diabetes, hypertension, multiple sclerosis, coronary artery disease, history of congestive heart failure, renal insufficiency. SOCIAL HISTORY: Negative for alcohol or tobacco use. He has been living in a retirement facility. MEDICATIONS: Include potassium, guaifenesin, albuterol, aspirin, atorvastatin, torsemide, albuterol, capsaicin, diphenhydramine, insulin, prednisone, carvedilol. ALLERGIES: COMPAZINE, SULFA, PNEUMOCOCCAL VACCINE AND REYES INHIBITORS. FAMILY HISTORY: Noncontributory. REVIEW OF SYSTEMS: CONSTITUTIONAL: The patient denies fever or chills. ENT: The patient denies earache, nasal drainage or sore throat. CARDIOVASCULAR: The patient denies chest pain, palpitations, diaphoresis. PULMONARY: The patient denies cough or shortness of breath. GASTROINTESTINAL: The patient does complain of some nausea and some right upper quadrant abdominal pain. GENITOURINARY: The patient denies frequency or urgency of urination. Denies dysuria. ORTHOPEDIC: The patient complains of swelling of the lower extremities with blistering. The patient's other systems in a 14-point review of systems are negative. [address] [address] CONSULTATION Name: BRIANA MYERS Room #: 418-P [facility] IN M.R.#: [id number] Admission: 03/20/18 Attend Phys: Josh Keller MD Discharge: Date of : 51 Report #: [id number] PHYSICAL EXAMINATION: VITAL SIGNS: At this time include pulse 90, respiratory rate 16, blood pressure 111/66, temperature 97.6. GENERAL: This is a chronically ill-appearing male patient who appears to be in minimal distress. HEENT: Head normocephalic. Nose and throat are clear. NECK: Supple. LUNGS: Diminished. ABDOMEN: Soft, nontender at this time. EXTREMITIES: Lower extremities demonstrate diminished distal pulses. He has 3+ edema bilaterally. He has a large blister on the dorsal aspect of the right foot as well as blisters on the tips of the right second and third toes. The left foot has a circular ulceration that is presumably pressure related. He likely has stage 3, although technically unstageable due to presence of slough. There is no exposed deep structure at this time. There is mild oseas-wound erythema. The left great toe appears ischemic. There is dry eschar on the tip, but the skin surrounding this is also dusky. NEUROLOGIC: The patient is alert. He does seem to move all 4 extremities. LABORATORY DATA: Includes sodium 136, potassium 4.8, chloride 99, CO2 of 30, BUN 68, creatinine 1.8, albumin is 2.5, alkaline phosphatase is markedly elevated, SGPT 142. Albumin is 2.5. BNP is 9164. Radiology reports demonstrate arterial Doppler, indicates low velocity, fairly normal waveforms bilaterally through the legs without significant focal velocity elevations or stenosis, diffuse calcification and plaquing, more proximal occlusive disease is felt less likely given the fairly normal waveform, mild velocity elevation, distal right femoral artery suggest approximately 50% focal narrowing segment of occlusion or very slow flow in the left posterior tibial artery, pleural fluid, minimal ascites. CLINICAL IMPRESSION: 1. Ulcerations of the right foot, second and third toes likely due to volume overload and bulla formation. 2. Ischemic ulcer tip of left great toe and unstageable pressure ulcer, left heel. RECOMMENDATIONS: At this point in time, we will recommend gentamicin ointment, Xeroform gauze to the right foot ulcerations. For the left great toe, we will recommend topical Betadine. We will recommend Medihoney to the left heel. He will need PRAFO boots bilaterally. It does not appear from his arterial Dopplers that there would be much of an opportunity to improve flow with angiography. I reviewed this with the interventional radiologist who concurs. It is unclear as to why he is ischemic other than possible microvascular disease [facility] [address] [facility] [place] [address] CONSULTATION Name: BRIANA MYERS Room #: 418-P [facility] IN M.R.#: [id number] Admission: 03/20/18 Attend Phys: Josh Keller MD Discharge: Date of : 51 Report #: [id number] in the left foot. We will continue to follow closely. I appreciate being asked to see him in consultation. <ELECTRONICALLY SIGNED> By: Owen Kimbrough MD 03/22/1804 58 012 Owen Kimbrough MD /nt
--- NOTE | ~2018-03-20 | EKG ---
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: MZOOK : 1955 Requested By: Shagufta Cates Order Number: [id number] MD: Felix Tatum Measurements Intervals [place] Rate: 82 P: 62 [place]: 174 QRS: 96 QRSD: 110 T: 240 QT: 403 QTc: 471 Interpretive Statements Sinus rhythm Probable left atrial enlargement Left posterior fascicular block Low voltage with right axis deviation Borderline repolarization abnormality Compared to ECG 01/07/2018 14:17:02 Left posterior fascicular block now present Sinus tachycardia no longer present Electronically Signed On 03-24-2018 14:38:00 CDT by Felix Tatum [email or web address] <ELECTRONICALLY SIGNED> By: Felix Tatum MD 03/24/18 1438 1312 1312 Felix Tatum MD /EPI
[2018-03-20 11:31] VITALS: BP 106/76
[~2018-03-20 11:31] MED LIST changes: +CORLANOR5 MG PO; +IPRAT-ALBUT 0.5-3 ML INH
[2018-03-20 12:14] LABS: ABSOLUTE NEUTROPHILS 10.5 thou/uL (1.4-8.2); BASOPHILS 0.3 % (0.0-2.0); HEMATOCRIT 33.2 % (42.0-52.0); MCH 28.5 pg (26.0-34.0); MCHC 33.2 g/dL (28.0-37.0); MCV 85.9 fL (80.0-100.0); MONOCYTES 6.9 % (1.0-8.0); PLATELET COUNT 192 thou/uL (150-400); POLYS 86.8 % (36.0-66.0); RBC 3.86 mil/uL (4.50-6.00); RDW 20.8 % (10.5-14.5); WBC 12.1 thou/uL (4.0-11.0)
[2018-03-20 12:21] LABS: CALCIUM 9.1 mg/dL (8.5-10.1); CREATININE 2.1 mg/dL (0.7-1.3); POTASSIUM 5.4 mmol/L (3.5-5.1)
[2018-03-20 12:29] LABS: ALBUMIN 2.8 g/dL (3.4-5.0); TOTAL BILIRUBIN 1.3 mg/dL (<0.1-1.0); TOTAL PROTEIN 5.8 g/dL (6.4-8.2); TROPONIN-I 0.17 ng/mL (<0.06)
[2018-03-20 12:37] LABS: ANISOCYTOSIS 2+; PLATELET ESTIMATE NORMAL; POLYCHROMASIA 1+
[2018-03-20] MEDS ORDERED: PREDNISONE 10 M10 M1 PO (13:46)
[2018-03-20] MEDS ORDERED: LEVEMIR SUBQ (13:46)
[2018-03-20] MEDS ORDERED: CARVEDILOL12.5 MG PO ×2 (13:48→13:50)
[2018-03-20 17:45] VITALS: BP 105/71
[2018-03-20 18:37] VITALS: BP 105/71
[2018-03-20 19:17] VITALS: BP 103/75
[2018-03-21 04:17] VITALS: BP 102/67
[2018-03-21 06:30] LABS: HEMATOCRIT 33.5 % (42.0-52.0); HEMOGLOBIN 11.2 gm/dL (14.0-18.0); MCH 28.8 pg (26.0-34.0); MCHC 33.4 g/dL (28.0-37.0); MCV 86.3 fL (80.0-100.0); RBC 3.88 mil/uL (4.50-6.00); RDW 21.4 % (10.5-14.5)
[2018-03-21 06:46] LABS: ALBUMIN 2.5 g/dL (3.4-5.0); CALCIUM 8.8 mg/dL (8.5-10.1); CREATININE 1.8 mg/dL (0.7-1.3); DIRECT BILIRUBIN 0.3 mg/dL (<0.1-0.3); POTASSIUM 4.8 mmol/L (3.5-5.1); TOTAL BILIRUBIN 0.8 mg/dL (<0.1-1.0); TOTAL PROTEIN 5.7 g/dL (6.4-8.2)
[2018-03-21 07:15] VITALS: BP 96/64
[2018-03-21 15:40] VITALS: BP 105/73
[2018-03-21 19:45] VITALS: BP 111/66
[2018-03-22 03:18] VITALS: BP 107/74
[2018-03-22 07:05] VITALS: BP 113/75
[2018-03-22 08:35] LABS: CALCIUM 8.3 mg/dL (8.5-10.1); CREATININE 1.8 mg/dL (0.7-1.3); POTASSIUM 4.1 mmol/L (3.5-5.1)
[2018-03-22 15:01] VITALS: BP 97/66
[2018-03-22 19:38] VITALS: BP 125/71
[2018-03-23 01:58] VITALS: BP 102/62
[2018-03-23 09:06] VITALS: BP 90/56
[2018-03-23 09:10] VITALS: BP 90/60
[2018-03-23 20:00] VITALS: BP 106/62
[2018-03-24 04:30] VITALS: BP 98/59
[2018-03-24 08:26] VITALS: BP 105/67
[2018-03-24 15:39] VITALS: BP 87/58
[2018-03-24 20:15] VITALS: BP 99/53
[2018-03-25 00:20] VITALS: BP 131/105
[2018-03-25 03:35] VITALS: BP 111/66
[2018-03-25 04:42] LABS: ABSOLUTE NEUTROPHILS 10.6 thou/uL (1.4-8.2); BASOPHILS 0.3 % (0.0-2.0); EOSINOPHILS 0.2 % (0.0-3.0); HEMATOCRIT 31.7 % (42.0-52.0); HEMOGLOBIN 10.1 gm/dL (14.0-18.0); LYMPHOCYTES 4.1 % (24.0-44.0); MCH 27.9 pg (26.0-34.0); MCHC 31.9 g/dL (28.0-37.0); MCV 87.5 fL (80.0-100.0); MONOCYTES 7.2 % (1.0-8.0); PLATELET COUNT 149 thou/uL (150-400); POLYS 88.2 % (36.0-66.0); RBC 3.62 mil/uL (4.50-6.00); RDW 21.1 % (10.5-14.5)
[2018-03-25 04:55] LABS: CALCIUM 8.4 mg/dL (8.5-10.1); CREATININE 1.1 mg/dL (0.7-1.3); POTASSIUM 4.5 mmol/L (3.5-5.1)
[2018-03-25 07:25] VITALS: BP 118/72
[2018-03-25 16:00] VITALS: BP 94/46
[2018-03-25 20:00] VITALS: BP 113/67
[2018-03-26 04:30] VITALS: BP 107/68
[2018-03-26 07:30] VITALS: BP 96/59
[2018-03-26 15:00] VITALS: BP 88/44
[2018-03-26 19:34] VITALS: BP 99/61
[2018-03-27 05:28] VITALS: BP 93/55
[2018-03-27] MEDS ORDERED: COZAAR 25 MG TA25 M1 PO (11:20)
[2018-03-27 16:13] VITALS: BP 90/50
[2018-03-27 19:30] VITALS: BP 96/51
[2018-03-28 03:09] VITALS: BP 92/52
[2018-03-28 08:11] VITALS: BP 106/67
== END 2018-03-28 10:24 | DRG 682 ==
LOC: ER 11:31 → EROBS 13:10 → 4E 13:10
PROVIDERS: Hospitalist; Student in an Organized Health Care Education/Training Program
DX: N17.9 Acute kidney failure, unspecified (principal); I50.23 Acute on chronic systolic (congestive) heart failure; I13.0 Hypertensive heart and chronic kidney disease with heart failure and stage 1 through stage 4 chronic kidney disease, or unspecified chronic kidney disease; E44.0 Moderate protein-calorie malnutrition; G35 Multiple sclerosis; I25.10 Atherosclerotic heart disease of native coronary artery without angina pectoris; N18.9 Chronic kidney disease, unspecified; L89.899 Pressure ulcer of other site, unspecified stage; L97.519 Non-pressure chronic ulcer of other part of right foot with unspecified severity; Z60.2 Problems related to living alone; E87.5 Hyperkalemia; E11.649 Type 2 diabetes mellitus with hypoglycemia without coma; L89.620 Pressure ulcer of left heel, unstageable; K83.9 Disease of biliary tract, unspecified; L97.529 Non-pressure chronic ulcer of other part of left foot with unspecified severity; I25.5 Ischemic cardiomyopathy; E11.621 Type 2 diabetes mellitus with foot ulcer; E11.22 Type 2 diabetes mellitus with diabetic chronic kidney disease; K82.8 Other specified diseases of gallbladder; I25.2 Old myocardial infarction; Z88.7 Allergy status to serum and vaccine; Z95.810 Presence of automatic (implantable) cardiac defibrillator; Z68.27 Body mass index [BMI] 27.0-27.9, adult; Z87.01 Personal history of pneumonia (recurrent); Z91.81 History of falling; Z79.899 Other long term (current) drug therapy; Z79.82 Long term (current) use of aspirin; Z79.4 Long term (current) use of insulin; Z88.8 Allergy status to other drugs, medicaments and biological substances; Z88.2 Allergy status to sulfonamides
CPT/HCPCS: 10084